=== PATIENT | female | born 1960 | race Caucasian/White ===

== ENCOUNTER 2017-09-28 23:11 | Inpatient (IN) | payer OTHER ==
[~2017-09-28] VITALS: Ht 162.6 cm; Wt 57.5 kg
[~2017-09-28 23:11] MED LIST: ABILIFY PO; ACET325; ALBU3IS INH; ALBU90OI61 INH; AMIT50; AMIT50 PO; AMIT75 PO; AMOCLA875 PO; ARIP10 PO; BACITO TP; CALCNI; CEPH500 PO; CIPR500 PO; CLON1 PO; CYAN1000I IM; CYCL10 PO; DIVA250ER PO; ESTR2 PO; Estrace PO; FLUC150A PO; FLUSAL1005 IH; FLUSAL2505 IH; FOLI1 PO; GABA300 PO; GEMF600 PO; HYDACE10B PO; HYDACE5; HYDACE5 PO; HYDCHL12.5 PO; HYDGUAL120 PO; HYDPAM25; HYDR1TAB94 PO; HYOS.125 SL; IBUP800 PO; IPRAOI INH; K-Dur10 MEQ PO; LEVFLO500 PO; LEVSOD100 PO; LEVSOD200 PO; LOVA40 PO; METH; METH10; OMEPRAZOLE MAGN20 MG PO; OTC COUGH MED; PRED10 PO; PRED20 PO; PREG200 PO; QUET200; QUET300; QUET300 PO; ROPI1; ROPI2 PO; ROSU10TA; ROSU10TA PO; RXHYDACE PO; SPIRIVA INH; SULTRIDS PO; Seroquel100 MG PO; THYR60; TIOT18 IH; TRAZ100; TRAZ100 PO; TRAZODONE; Zofran Odt8 MG SL; [UNRECOGNIZED DRUG - OTHER]
[2017-09-28 23:25] LABS: PCO2 Arterial 29.8 mmHg (35-45); PO2 Arterial 217 mmHg (80-100); pH Blood Arterial 7.33 (7.35-7.45)
[2017-09-28 23:40] LABS: BASOPHILS ABSOLUTE AUTO 0.06 K/mm3 (0.00-0.23); BASOPHILS PERCENT AUTO 0 % (0-2); EOSINOPHILS PERCENT AUTO 1 % (0-6); Hematocrit 33.6 % (33.0-51.0); Hemoglobin 11.5 g/dL (11.5-16.0); IMMATURE GRAN ABSOLUTE AUTO 0.22 K/mm3 (0.00-0.10); IMMATURE GRAN PERCENT AUTO 1 % (0-1); LYMPHOCYTES ABSOLUTE AUTO 2.29 K/mm3 (0.84-5.20); LYMPHOCYTES PERCENT AUTO 13 % (21-46); MONOCYTES ABSOLUTE AUTO 1.11 K/mm3 (0.16-1.47); MONOCYTES PERCENT AUTO 6 % (4-13); Mean Corpuscular HGB 29.3 pg (26.0-34.0); Mean Corpuscular HGB Conc 34.2 g/dL (31.5-36.5); Mean Corpuscular Volume 86 fL (80-100); Mean Platelet Volume 9.2 fL (9.1-12.4); NEUTROPHILS ABSOLUTE AUTO 13.57 K/mm3 (1.96-9.15); NEUTROPHILS PERCENT AUTO 78 % (41-73); Platelet Count 366 K/mm3 (150-400); RDW Coefficient Variation 13.9 % (11.7-14.2); RDW Standard Deviation 43.2 fL (35.1-46.3); Red Blood Cell Count 3.93 M/mm3 (3.80-5.20); White Blood Cell Count 17.35 K/mm3 (4.00-11.30)
[2017-09-28 23:51] LABS: International Normalized Ratio 1.34; Prothrombin Time Results 14.1 Sec (9.7-11.5)
[2017-09-29 00:04] LABS: Alanine Aminotransfer (ALT/SGP 26 U/L (12-78); Albumin, Blood 3.5 g/dL (3.4-5.0); Albumin/Globulin Ratio 0.9 (0.8-1.8); Alk Phos 153 U/L (50-136); Anion Gap 13 mmol/L (6-16); Aspartate Aminotrans (AST/SGOT 35 U/L (12-37); Bilirubin, Total 0.5 mg/dL (0.1-1.0); Blood Urea Nitrogen 15 mg/dL (8-24); CO2, Blood 16 mmol/L (21-32); CPK Creatine Kinase 735 U/L (26-193); Calcium, Blood 8.5 mg/dL (8.5-10.1); Chloride, Blood 100 mmol/L (98-108); Creatinine, Blood 1.15 mg/dL (0.40-1.00); Ethanol (Alcohol), Blood, Med <3 mg/dL; Glomerular Filtration Rate 52 (60-); Glucose, Blood 128 mg/dL (70-99); Magnesium, Blood 1.5 mg/dL (1.6-2.4); Salicylate <1.7 mg/dL (2.8-20.0); Sodium, Blood 129 mmol/L (136-145); Total Protein, Blood 7.5 g/dL (6.4-8.2); Troponin I <0.015 ng/mL (0.000-0.040)
[2017-09-29 00:07] LABS: Creatine Kinase MB 11.1 ng/mL (0.0-3.6); Creatine Kinase MB Index 1.5 (0.0-4.0)
[2017-09-29 00:11] LABS: Acetaminophen, Random <2.0 ug/mL (10.0-30.0)
[2017-09-29 00:21] LABS: Source, Urine Catheter
[2017-09-29 00:28] LABS: Appearance, Urine Clear (Clear); Bilirubin, Urine Neg (Neg); Blood, Urine Neg (Neg); Color, Urine Yellow (P-Yellow); Glucose Qualitative, Urine Neg (Neg); Ketones, Urine Neg (Neg); Leukocyte Esterase, Urine Neg (Neg); Nitrite, Urine Neg (Neg); Protein, Urine Neg (Neg); Urobilinogen, Urine NORM (Normal)
[2017-09-29 00:37] LABS: U Amphetamine Screen Not Detected; U Barbituate Screen Not Detected; U Benzodiazapine Screen Not Detected; U Buprenorphine Screen Not Detected; U Cannabinoids Screen Not Detected; U Cocaine Screen Not Detected; U Methadone Screen Not Detected; U Methamphetamine Screen Not Detected; U Opiates Screen DETECTED; U Oxycodone Screen Not Detected; U Phencyclidine Screen Not Detected; U Propoxyphene Screen Not Detected
[2017-09-29 08:30] LABS: BASOPHILS ABSOLUTE AUTO 0.04 K/mm3 (0.00-0.23); BASOPHILS PERCENT AUTO 0 % (0-2); EOSINOPHILS ABSOLUTE AUTO 0.17 K/mm3 (0.00-0.68); EOSINOPHILS PERCENT AUTO 2 % (0-6); Hematocrit 30.3 % (33.0-51.0); Hemoglobin 10.1 g/dL (11.5-16.0); IMMATURE GRAN ABSOLUTE AUTO 0.06 K/mm3 (0.00-0.10); IMMATURE GRAN PERCENT AUTO 1 % (0-1); LYMPHOCYTES ABSOLUTE AUTO 2.88 K/mm3 (0.84-5.20); LYMPHOCYTES PERCENT AUTO 27 % (21-46); MONOCYTES ABSOLUTE AUTO 0.91 K/mm3 (0.16-1.47); MONOCYTES PERCENT AUTO 9 % (4-13); Mean Corpuscular HGB 29.6 pg (26.0-34.0); Mean Corpuscular HGB Conc 33.3 g/dL (31.5-36.5); NEUTROPHILS ABSOLUTE AUTO 6.68 K/mm3 (1.96-9.15); NEUTROPHILS PERCENT AUTO 62 % (41-73); Platelet Count 328 K/mm3 (150-400); RDW Coefficient Variation 14.3 % (11.7-14.2); RDW Standard Deviation 46.5 fL (35.1-46.3); Red Blood Cell Count 3.41 M/mm3 (3.80-5.20); White Blood Cell Count 10.74 K/mm3 (4.00-11.30)
[2017-09-29 08:33] LABS: Mean Corpuscular Volume 89 fL (80-100)
[2017-09-29 09:46] LABS: Anion Gap 8 mmol/L (6-16); Blood Urea Nitrogen 10 mg/dL (8-24); Bun/Creatinine Ratio 10.8 (12.0-20.0); CO2, Blood 18 mmol/L (21-32); Calcium, Blood 7.5 mg/dL (8.5-10.1); Chloride, Blood 114 mmol/L (98-108); Creatinine, Blood 0.93 mg/dL (0.40-1.00); Glomerular Filtration Rate >60 (60-); Glucose, Blood 111 mg/dL (70-99); Potassium, Blood 4.1 mmol/L (3.5-5.5); Sodium, Blood 140 mmol/L (136-145)
[2017-09-30] MEDS ORDERED: HYDR1TAB94 PO (10:55)
[2017-09-30] MEDS ORDERED: AMIT50 PO (11:25)
[2017-10-01 04:03] LABS: BASOPHILS ABSOLUTE AUTO 0.05 K/mm3 (0.00-0.23); BASOPHILS PERCENT AUTO 0 % (0-2); EOSINOPHILS ABSOLUTE AUTO 0.22 K/mm3 (0.00-0.68); EOSINOPHILS PERCENT AUTO 2 % (0-6); Hematocrit 31.6 % (33.0-51.0); Hemoglobin 10.5 g/dL (11.5-16.0); IMMATURE GRAN ABSOLUTE AUTO 0.09 K/mm3 (0.00-0.10); IMMATURE GRAN PERCENT AUTO 1 % (0-1); LYMPHOCYTES ABSOLUTE AUTO 2.45 K/mm3 (0.84-5.20); LYMPHOCYTES PERCENT AUTO 20 % (21-46); MONOCYTES PERCENT AUTO 7 % (4-13); Mean Corpuscular HGB 28.7 pg (26.0-34.0); Mean Corpuscular HGB Conc 33.2 g/dL (31.5-36.5); Mean Corpuscular Volume 86 fL (80-100); Mean Platelet Volume 9.2 fL (9.1-12.4); NEUTROPHILS ABSOLUTE AUTO 8.49 K/mm3 (1.96-9.15); NEUTROPHILS PERCENT AUTO 70 % (41-73); Platelet Count 417 K/mm3 (150-400); RDW Coefficient Variation 14.4 % (11.7-14.2); Red Blood Cell Count 3.66 M/mm3 (3.80-5.20)
[2017-10-01 04:21] LABS: Anion Gap 8 mmol/L (6-16); Blood Urea Nitrogen 3 mg/dL (8-24); Bun/Creatinine Ratio 3.6 (12.0-20.0); CO2, Blood 22 mmol/L (21-32); Calcium, Blood 8.4 mg/dL (8.5-10.1); Chloride, Blood 108 mmol/L (98-108); Creatinine, Blood 0.83 mg/dL (0.40-1.00); Glomerular Filtration Rate >60 (60-); Glucose, Blood 105 mg/dL (70-99); Phosphorus, Blood 3.3 mg/dL (2.5-4.9); Potassium, Blood 2.9 mmol/L (3.5-5.5); Sodium, Blood 138 mmol/L (136-145)
[2017-10-01 12:04] LABS: Source, Urine Clean Catch
[2017-10-01 12:08] LABS: Bilirubin, Urine Neg (Neg); Blood, Urine 2+ (Neg); Glucose Qualitative, Urine Neg (Neg); Ketones, Urine Neg (Neg); Leukocyte Esterase, Urine Neg (Neg); Nitrite, Urine Neg (Neg); Protein, Urine Neg (Neg); Specific Gravity, Urine 1.005 (1.003-1.022); Urobilinogen, Urine NORM (Normal); pH, Urine 6.5 (5.0-8.0)
[2017-10-01 13:13] LABS: Appearance, Urine Clear (Clear); Color, Urine Pale Yellow (P-Yellow)
[2017-10-01 13:14] LABS: Bacteria Not Seen /hpf; Red Blood Cells, Urine Not Seen /hpf (0-2); Squamous Epithelial Cells Not Seen /hpf (Few); White Blood Cells, Urine Not Seen /hpf (0-5)
[2017-10-02 04:36] LABS: BASOPHILS ABSOLUTE AUTO 0.04 K/mm3 (0.00-0.23); BASOPHILS PERCENT AUTO 0 % (0-2); EOSINOPHILS ABSOLUTE AUTO 0.56 K/mm3 (0.00-0.68); EOSINOPHILS PERCENT AUTO 6 % (0-6); Hematocrit 30.5 % (33.0-51.0); IMMATURE GRAN ABSOLUTE AUTO 0.06 K/mm3 (0.00-0.10); IMMATURE GRAN PERCENT AUTO 1 % (0-1); LYMPHOCYTES ABSOLUTE AUTO 3.56 K/mm3 (0.84-5.20); LYMPHOCYTES PERCENT AUTO 36 % (21-46); MONOCYTES ABSOLUTE AUTO 0.66 K/mm3 (0.16-1.47); MONOCYTES PERCENT AUTO 7 % (4-13); Mean Corpuscular HGB Conc 32.8 g/dL (31.5-36.5); Mean Corpuscular Volume 88 fL (80-100); Mean Platelet Volume 8.8 fL (9.1-12.4); NEUTROPHILS ABSOLUTE AUTO 4.92 K/mm3 (1.96-9.15); NEUTROPHILS PERCENT AUTO 50 % (41-73); Platelet Count 408 K/mm3 (150-400); RDW Coefficient Variation 14.5 % (11.7-14.2); RDW Standard Deviation 46.5 fL (35.1-46.3); Red Blood Cell Count 3.45 M/mm3 (3.80-5.20)
[2017-10-02 04:53] LABS: Albumin, Blood 2.8 g/dL (3.4-5.0); Anion Gap 10 mmol/L (6-16); Blood Urea Nitrogen 4 mg/dL (8-24); Bun/Creatinine Ratio 4.5 (12.0-20.0); CO2, Blood 22 mmol/L (21-32); Calcium, Blood 8.3 mg/dL (8.5-10.1); Chloride, Blood 108 mmol/L (98-108); Creatinine, Blood 0.88 mg/dL (0.40-1.00); Glomerular Filtration Rate >60 (60-); Glucose, Blood 134 mg/dL (70-99); Phosphorus, Blood 2.6 mg/dL (2.5-4.9); Potassium, Blood 2.9 mmol/L (3.5-5.5); Sodium, Blood 140 mmol/L (136-145)
[2017-10-02 12:30] LABS: Magnesium, Blood 1.7 mg/dL (1.6-2.4)
[2017-10-02] MEDS ORDERED: CIPR500 PO (15:12)
[2017-10-02] MEDS ORDERED: LIDO700A20 TOP (15:14)
[2017-10-02] MEDS ORDERED: Flagyl500 MG PO (15:19)
[2017-10-02] MEDS ORDERED: SACC250C PO (15:20)
[2017-10-02] MEDS ORDERED: SIME80CH PO (15:21)
== END 2017-10-02 16:18 | disposition home or self-care (01) | DRG 917 ==
LOC: ER 23:11 → ICUE 09-29 01:17 → PCU 09-29 01:17 → ICUW 09-29 01:17 → ICUE 09-29 01:50 → PCU 09-29 16:56
PROVIDERS: Emergency Medicine; Family Medicine; Internal Medicine
PROC: 5A1935Z Respiratory Ventilation, Less than 24 Consecutive Hours (ICD-10-PCS; principal; 2017-09-29)
DX: T40.601A Poisoning by unspecified narcotics, accidental (unintentional), initial encounter (principal); G92 Toxic encephalopathy; J96.00 Acute respiratory failure, unspecified whether with hypoxia or hypercapnia; E87.1 Hypo-osmolality and hyponatremia; M62.82 Rhabdomyolysis; M54.5 Low back pain; D72.829 Elevated white blood cell count, unspecified; E87.6 Hypokalemia; K52.9 Noninfective gastroenteritis and colitis, unspecified; E86.0 Dehydration; F20.9 Schizophrenia, unspecified; E03.9 Hypothyroidism, unspecified; J44.9 Chronic obstructive pulmonary disease, unspecified; R40.2431 Glasgow coma scale score 3-8, in the field [EMT or ambulance]
CPT/HCPCS: 31720; 36415; 36600; 51702; 70450; 71045; 72125; 72131; 74022; 74177; 80048; 80053; 80069; 81001; 81003; 82140; 82550; 82553; 82803; 83605; 83690; 83735; 83880; 84443; 84484; 85025; 85610; 86850; 86900; 86901; 87040; 93005; 93010; 94002; 94003; 96365; 96375; 97161; 97165; 99291; 99292; C9113; G0480; G8978; G8979; G8980; G8987; G8988; G8989; J0696; J1650; J2405; J2543; J3010; J3370; J3475; J3480; J7030; Q9967

== ENCOUNTER → 2017-10-22 | Outpatient (CLI) | payer OTHER ==
[~2017-10-22] MED LIST changes: +Flagyl500 MG PO; +LIDO700A20 TOP; +SACC250C PO; +SIME80CH PO
== END ==
LOC: LAB 08:00 → LAB SHORT 08:00
DX: K21.9 Gastro-esophageal reflux disease without esophagitis (principal)
CPT/HCPCS: 87338

== ENCOUNTER 2017-12-11 11:48 | Day surgery (SDC) | payer OTHER ==
[~2017-12-11] VITALS: Ht 165.1 cm; Wt 53.7 kg
[~2017-12-11 11:48] MED LIST changes: +ALBU2.5V5 NEB; +ALBU90OI61; +CALCIUM + D3 E1 EACH PO; +LIDOPATCH1 EACH; +LISI5 PO; +Lovastatin20 MG PO; +MIRT15 PO; +Omeprazole20 M1 PO; +PROBIOTIC250 MG PO; +VICODIN ES 7.51 EACH
== END 2017-12-11 16:34 | disposition home or self-care (01) ==
LOC: ORSCSDS 11:48
PROVIDERS: Internal Medicine Gastroenterology
PROC: 0DB98ZX Excision of Duodenum, Via Natural or Artificial Opening Endoscopic, Diagnostic (ICD-10-PCS; principal; 2017-12-11 13:30)
PROC: 0DB68ZX Excision of Stomach, Via Natural or Artificial Opening Endoscopic, Diagnostic (ICD-10-PCS; principal; 2017-12-11 13:30)
PROC: 0DBE8ZX Excision of Large Intestine, Via Natural or Artificial Opening Endoscopic, Diagnostic (ICD-10-PCS; principal; 2017-12-11 13:30)
DX: R19.7 Diarrhea, unspecified (principal); K52.9 Noninfective gastroenteritis and colitis, unspecified; K21.9 Gastro-esophageal reflux disease without esophagitis; D12.5 Benign neoplasm of sigmoid colon; R11.2 Nausea with vomiting, unspecified; R10.9 Unspecified abdominal pain; K29.80 Duodenitis without bleeding; F17.210 Nicotine dependence, cigarettes, uncomplicated; J43.9 Emphysema, unspecified
CPT/HCPCS: J2250; J7120

== ENCOUNTER → 2018-01-20 | Outpatient (CLI) | payer OTHER ==
[2018-01-23 13:06] LABS: Adenovirus F 40/41 Not Detected (NOT DETECT); Astrovirus Not Detected (NOT DETECT); Campylobacter Sp Not Detected (NOT DETECT); Cryptosporidium Not Detected (NOT DETECT); Cyclospora Cayetanensis Not Detected (NOT DETECT); E. Coli O157 Not Detected (NOT DETECT); Entamoeba Histolytica Not Detected (NOT DETECT); Enteroaggregative E. coli-EAEC Not Detected (NOT DETECT); Enteropathogenic E. coli-EPEC Not Detected (NOT DETECT); Enterotoxigenic E. coli-ETEC Not Detected (NOT DETECT); Giardia Lamblia Not Detected (NOT DETECT); Norovirus GI/GII Not Detected (NOT DETECT); Plesiomonas Shigelloides Not Detected (NOT DETECT); Rotavirus A Not Detected (NOT DETECT); Salmonella Sp Not Detected (NOT DETECT); Sapovirus Not Detected (NOT DETECT); Shiga Toxin-prod E. coli-STEC Not Detected (NOT DETECT); Shigella/Enteroin E. coli-EIEC Not Detected (NOT DETECT); Vibrio Cholerae Not Detected (NOT DETECT); Vibrio Sp Not Detected (NOT DETECT); Yersinia Enterocolitica Not Detected (NOT DETECT)
== END | disposition home or self-care (01) ==
LOC: LAB 16:00 → LAB SHORT 16:00 → LAB FUT 01-03 17:25 → EDSTATUS 01-03 17:25
PROVIDERS: Internal Medicine Gastroenterology
DX: R19.7 Diarrhea, unspecified (principal)
CPT/HCPCS: 87507

== ENCOUNTER → 2018-12-06 | Outpatient (CLI) | payer OTHER ==
[~2018-12-06] MED LIST changes: +ADAL40PEN; +BUDE.25; +ONDA4ODT; +PRAM.125
== END | disposition home or self-care (01) ==
LOC: LAB SHORT 13:53 → LAB EV 13:53
DX: B37.0 Candidal stomatitis (principal)
CPT/HCPCS: 87081

== ENCOUNTER 2019-02-05 10:25 | Day surgery (SDC) | payer OTHER ==
[~2019-02-05] VITALS: Ht 162.6 cm; Wt 48.2 kg
[~2019-02-05 10:25] MED LIST changes: -ADAL40PEN; -BUDE.25; -ONDA4ODT; -PRAM.125
[2019-02-05] MEDS ORDERED: ADAL40PEN (11:21)
[2019-02-05] MEDS ORDERED: PRAM.125 (11:22)
[2019-02-05] MEDS ORDERED: BUDE.25 (11:22)
[2019-02-05] MEDS ORDERED: ONDA4ODT (11:23)
--- NOTE | 2019-02-05 11:28 | NUR ---
02/05/19 1128 Neelima Cottrell 1 IV MISS IN RR BY MA VALVE 1 MISSED IV IN RAC BY FELI RAMIRES BLEW 1 MISSED IV IN LH BY RN VALVE 1 MISSED IV IN LAC BY RN VALVE 1 GOOD IV IN LW BY RN PT TOW
--- NOTE | 2019-02-05 13:22 | NUR ---
02/05/19 1322 Erin Bernal LATE ENTRY---DR CORTES IS AWARE AND AGREES WITH LARGER BOLUS OF PROPOFOL IN ORDER TO KEEP PATIENT STILL. PATIENT TOLERATED THIS FINE AND THERE WERE NO PROBLEMS
== END 2019-02-05 13:19 | disposition home or self-care (01) ==
LOC: ORSCSDS 10:25
DX: R10.9 Unspecified abdominal pain (principal); K63.89 Other specified diseases of intestine; D12.3 Benign neoplasm of transverse colon; K62.1 Rectal polyp; Z86.010 Personal history of colon polyps; Z87.19 Personal history of other diseases of the digestive system; R19.4 Change in bowel habit; J44.9 Chronic obstructive pulmonary disease, unspecified; K21.9 Gastro-esophageal reflux disease without esophagitis; E78.5 Hyperlipidemia, unspecified; F31.9 Bipolar disorder, unspecified; E03.9 Hypothyroidism, unspecified; M79.7 Fibromyalgia; E11.9 Type 2 diabetes mellitus without complications; F17.210 Nicotine dependence, cigarettes, uncomplicated; Z79.899 Other long term (current) drug therapy
CPT/HCPCS: 82947; 88305; J2250; J2704; J7120

== ENCOUNTER → 2019-03-13 | Outpatient (CLI) | payer OTHER ==
[~2019-03-13] MED LIST changes: +ADAL40PEN; +BUDE.25; +ONDA4ODT; +PRAM.125
[2019-03-13 14:57] LABS: BASOPHILS ABSOLUTE AUTO 0.08 K/mm3 (0.00-0.23); BASOPHILS PERCENT AUTO 1 % (0-2); EOSINOPHILS PERCENT AUTO 9 % (0-6); Hematocrit 37.7 % (33.0-51.0); Hemoglobin 12.1 g/dL (11.5-16.0); IMMATURE GRAN ABSOLUTE AUTO 0.03 K/mm3 (0.00-0.10); IMMATURE GRAN PERCENT AUTO 0 % (0-1); LYMPHOCYTES ABSOLUTE AUTO 4.09 K/mm3 (0.84-5.20); LYMPHOCYTES PERCENT AUTO 36 % (21-46); MONOCYTES ABSOLUTE AUTO 0.47 K/mm3 (0.16-1.47); MONOCYTES PERCENT AUTO 4 % (4-13); Mean Corpuscular HGB 29.4 pg (26.0-34.0); Mean Corpuscular HGB Conc 32.1 g/dL (31.5-36.5); Mean Corpuscular Volume 92 fL (80-100); Mean Platelet Volume 9.1 fL (9.1-12.4); NEUTROPHILS ABSOLUTE AUTO 5.83 K/mm3 (1.96-9.15); NEUTROPHILS PERCENT AUTO 51 % (41-73); Platelet Count 369 K/mm3 (150-400); RDW Coefficient Variation 14.1 % (11.7-14.2); RDW Standard Deviation 47.6 fL (35.1-46.3); Red Blood Cell Count 4.11 M/mm3 (3.80-5.20)
[2019-03-13 15:15] LABS: Bun/Creatinine Ratio 13.2 (12.0-20.0); Calcium, Blood 8.9 mg/dL (8.5-10.1); Creatinine, Blood 1.06 mg/dL (0.40-1.00); Potassium, Blood 3.3 mmol/L (3.5-5.5); Thyroid Stimulating Hormone 2.354 uIU/mL (0.360-4.800)
== END | disposition home or self-care (01) ==
LOC: LAB SHORT 14:51 → LAB EV 14:51
PROVIDERS: Physician Assistant Surgical
DX: R53.83 Other fatigue (principal)
CPT/HCPCS: 80048; 84443; 85025

== ENCOUNTER → 2019-03-20 | Outpatient (CLI) | payer OTHER ==
[2019-03-20 13:08] LABS: BASOPHILS ABSOLUTE AUTO 0.11 K/mm3 (0.00-0.23); BASOPHILS PERCENT AUTO 1 % (0-2); EOSINOPHILS ABSOLUTE AUTO 0.83 K/mm3 (0.00-0.68); EOSINOPHILS PERCENT AUTO 6 % (0-6); Hematocrit 42.5 % (33.0-51.0); Hemoglobin 14.3 g/dL (11.5-16.0); IMMATURE GRAN ABSOLUTE AUTO 0.06 K/mm3 (0.00-0.10); IMMATURE GRAN PERCENT AUTO 0 % (0-1); LYMPHOCYTES ABSOLUTE AUTO 3.71 K/mm3 (0.84-5.20); LYMPHOCYTES PERCENT AUTO 25 % (21-46); MONOCYTES ABSOLUTE AUTO 0.66 K/mm3 (0.16-1.47); MONOCYTES PERCENT AUTO 4 % (4-13); Mean Corpuscular HGB 29.5 pg (26.0-34.0); Mean Corpuscular HGB Conc 33.6 g/dL (31.5-36.5); Mean Platelet Volume 8.5 fL (9.1-12.4); NEUTROPHILS ABSOLUTE AUTO 9.67 K/mm3 (1.96-9.15); NEUTROPHILS PERCENT AUTO 64 % (41-73); Platelet Count 589 K/mm3 (150-400); RDW Coefficient Variation 14.2 % (11.7-14.2); RDW Standard Deviation 45.2 fL (35.1-46.3); Red Blood Cell Count 4.84 M/mm3 (3.80-5.20); White Blood Cell Count 15.04 K/mm3 (4.00-11.30)
[2019-03-20 13:12] LABS: Mean Corpuscular Volume 88 fL (80-100)
[2019-03-20 14:13] LABS: Alanine Aminotransfer (ALT/SGP 19 U/L (12-78); Albumin, Blood 3.9 g/dL (3.4-5.0); Alk Phos 180 U/L (40-126); Anion Gap 15 mmol/L (6-16); Aspartate Aminotrans (AST/SGOT 20 U/L (12-37); Bilirubin, Total 0.2 mg/dL (0.1-1.0); Blood Urea Nitrogen 6 mg/dL (8-24); Bun/Creatinine Ratio 7.1 (12.0-20.0); CO2, Blood 19 mmol/L (21-32); Calcium, Blood 9.8 mg/dL (8.5-10.1); Chloride, Blood 103 mmol/L (98-108); Creatinine, Blood 0.84 mg/dL (0.40-1.00); Glomerular Filtration Rate >60 (60-); Glucose, Blood 104 mg/dL (70-99); Potassium, Blood 3.9 mmol/L (3.5-5.5); Sodium, Blood 137 mmol/L (136-145); Total Protein, Blood 7.9 g/dL (6.4-8.2)
== END | disposition home or self-care (01) ==
LOC: LAB SHORT 13:00 → LAB EV 13:00
PROVIDERS: Physician Assistant
DX: B37.0 Candidal stomatitis (principal)
CPT/HCPCS: 80053; 85025

== ENCOUNTER 2019-07-09 00:52 | Inpatient (IN) | payer OTHER ==
[~2019-07-09] VITALS: Ht 162.6 cm; Wt 47.5 kg
[~2019-07-09 00:52] MED LIST changes: -ALBU2.5V5 NEB; -ALBU90OI61; -BUDE.25; +Duoneb 2.5-0.5 M3 ML NEB; -ONDA4ODT; +ONDA4ODT SL; -PRAM.125; +PRAM.125 PO
[2019-07-09 01:28] LABS: BASOPHILS ABSOLUTE AUTO 0.09 K/mm3 (0.00-0.23); BASOPHILS PERCENT AUTO 0 % (0-2); Hematocrit 34.5 % (33.0-51.0); Hemoglobin 11.1 g/dL (11.5-16.0); LYMPHOCYTES ABSOLUTE AUTO 1.58 K/mm3 (0.84-5.20); LYMPHOCYTES PERCENT AUTO 7 % (21-46); MONOCYTES ABSOLUTE AUTO 0.45 K/mm3 (0.16-1.47); MONOCYTES PERCENT AUTO 2 % (4-13); Mean Corpuscular HGB 29.7 pg (26.0-34.0); Mean Corpuscular HGB Conc 32.2 g/dL (31.5-36.5); Mean Corpuscular Volume 92 fL (80-100); Mean Platelet Volume 8.2 fL (9.1-12.4); Platelet Count 386 K/mm3 (150-400); RDW Coefficient Variation 14.6 % (11.7-14.2); RDW Standard Deviation 49.1 fL (35.1-46.3); Red Blood Cell Count 3.74 M/mm3 (3.80-5.20); White Blood Cell Count 21.85 K/mm3 (4.00-11.30)
[2019-07-09 01:30] LABS: EOSINOPHILS ABSOLUTE AUTO 0.17 K/mm3 (0.00-0.68); EOSINOPHILS PERCENT AUTO 1 % (0-6); IMMATURE GRAN ABSOLUTE AUTO 0.12 K/mm3 (0.00-0.10); IMMATURE GRAN PERCENT AUTO 1 % (0-1); NEUTROPHILS ABSOLUTE AUTO 19.44 K/mm3 (1.96-9.15); NEUTROPHILS PERCENT AUTO 89 % (41-73)
[2019-07-09 02:25] LABS: Alanine Aminotransfer (ALT/SGP 65 U/L (12-78); Albumin, Blood 2.9 g/dL (3.4-5.0); Albumin/Globulin Ratio 0.7 (0.8-1.8); Alk Phos 209 U/L (50-136); Anion Gap 13 mmol/L (6-16); Aspartate Aminotrans (AST/SGOT 20 U/L (12-37); Bilirubin, Total 0.5 mg/dL (0.1-1.0); Blood Urea Nitrogen 39 mg/dL (8-24); Bun/Creatinine Ratio 20.7 (12.0-20.0); CO2, Blood 20 mmol/L (21-32); Calcium, Blood 8.4 mg/dL (8.5-10.1); Chloride, Blood 93 mmol/L (98-108); Creatinine, Blood 1.88 mg/dL (0.40-1.00); Globulin, Blood 4.3 g/dL (2.2-4.0); Glomerular Filtration Rate 29 (60-); Glucose, Blood 128 mg/dL (70-99); Sodium, Blood 126 mmol/L (136-145); Total Protein, Blood 7.2 g/dL (6.4-8.2); Troponin I <0.015 ng/mL (0.000-0.040)
[2019-07-09 03:56] LABS: Source, Urine Clean Catch
[2019-07-09 03:59] LABS: Appearance, Urine Clear (Clear); Bilirubin, Urine Neg (Neg); Blood, Urine Neg (Neg); Color, Urine Yellow (P-Yellow); Glucose Qualitative, Urine Neg (Neg); Ketones, Urine Neg (Neg); Leukocyte Esterase, Urine Neg (Neg); Nitrite, Urine Neg (Neg); Protein, Urine Neg (Neg); Specific Gravity, Urine 1.015 (1.003-1.022); Urobilinogen, Urine NORM (Normal)
[2019-07-09 06:35] LABS: Adenovirus Not Detected (NOT DETECT); Bordetella pertussis Not Detected (NOT DETECT); Chlamydophila pneumoniae Not Detected (NOT DETECT); Coronavirus 229E Not Detected (NOT DETECT); Coronavirus HKU1 Not Detected (NOT DETECT); Coronavirus NL63 Not Detected (NOT DETECT); Coronavirus OC43 Not Detected (NOT DETECT); Human Metapneumovirus Not Detected (NOT DETECT); Human Rhinovirus/Enterovirus Not Detected (NOT DETECT); Influenza A/2009-H1 Not Detected (NOT DETECT); Influenza A/H1 Not Detected (NOT DETECT); Influenza A/H3 Not Detected (NOT DETECT); Influenza B Not Detected (NOT DETECT); Mycoplasma pneumoniae Not Detected (NOT DETECT); Parainfluenza Virus 1 Not Detected (NOT DETECT); Parainfluenza Virus 2 Not Detected (NOT DETECT); Parainfluenza Virus 3 Not Detected (NOT DETECT); Parainfluenza Virus 4 Not Detected (NOT DETECT); Respiratory Syncytial Virus Not Detected (NOT DETECT)
[2019-07-09] MEDS ORDERED: Hydrocodone-Ap1 EA20 PO (09:01)
[2019-07-09] MEDS ORDERED: BUDESONIDE1 MG/2 ML NEB (21:36)
[2019-07-09] MEDS ORDERED: STELARA90 MG/1 ML SC (21:38)
[2019-07-10 04:52] LABS: BASOPHILS ABSOLUTE AUTO 0.08 K/mm3 (0.00-0.23); BASOPHILS PERCENT AUTO 0 % (0-2); Hemoglobin 8.8 g/dL (11.5-16.0); LYMPHOCYTES ABSOLUTE AUTO 0.87 K/mm3 (0.84-5.20); LYMPHOCYTES PERCENT AUTO 5 % (21-46); MONOCYTES ABSOLUTE AUTO 0.89 K/mm3 (0.16-1.47); MONOCYTES PERCENT AUTO 5 % (4-13); Mean Corpuscular HGB 29.7 pg (26.0-34.0); Mean Corpuscular HGB Conc 32.6 g/dL (31.5-36.5); Mean Corpuscular Volume 91 fL (80-100); Mean Platelet Volume 8.6 fL (9.1-12.4); Platelet Count 378 K/mm3 (150-400); RDW Coefficient Variation 14.4 % (11.7-14.2); RDW Standard Deviation 48.1 fL (35.1-46.3); Red Blood Cell Count 2.96 M/mm3 (3.80-5.20); White Blood Cell Count 18.54 K/mm3 (4.00-11.30)
--- NOTE | 2019-07-10 04:52 | NUR ---
SHIFT SUMMARY PT IS A/O X4. PT HAS BEEN BEDREST D/T DECR. SENSATION FROM EPIDURAL. HOWEVER PT REPOSITIONS SELF WELL AND HAS BEEN ASSISTED WTIH REPOSITIONING PRN. EPIDURAL, NG TUBE, CASTANO IN PLACE. O2 HAS BEEN IN USE TO MAINTAIN SATURATION. PT HAS BEEN VERY ANXIOUS THROUGHOUT THE NIGHT. PROVIDED EDUCATION ABOUT PAIN, PROVIDED REASSURANCE MULT. TIMES. PT'S BROTHER STAYED AT BEDSIDE THROUGH THE NIGHT. ASSISTED WITH ADL'S PRN.
[2019-07-10 04:54] LABS: EOSINOPHILS PERCENT AUTO 0 % (0-6); IMMATURE GRAN ABSOLUTE AUTO 0.18 K/mm3 (0.00-0.10); IMMATURE GRAN PERCENT AUTO 1 % (0-1); NEUTROPHILS ABSOLUTE AUTO 16.52 K/mm3 (1.96-9.15); NEUTROPHILS PERCENT AUTO 89 % (41-73)
[2019-07-10 05:14] LABS: Albumin, Blood 1.9 g/dL (3.4-5.0); Albumin/Globulin Ratio 0.6 (0.8-1.8); Bilirubin, Total 0.5 mg/dL (0.1-1.0); Bun/Creatinine Ratio 24.6 (12.0-20.0); Creatinine, Blood 1.18 mg/dL (0.40-1.00); Globulin, Blood 3.4 g/dL (2.2-4.0); Potassium, Blood 3.9 mmol/L (3.5-5.5); Total Protein, Blood 5.3 g/dL (6.4-8.2)
--- NOTE | 2019-07-10 18:31 | NUR ---
SHIFT SUMMARY PT A&OX4, VSS, NPO, POD1 COLECTOMY W/JUAN, OSTOMY WITH SMALL AMT BROWN LIQUID OUTPUT, PASSING FLATUS; EPIDURAL FOR PAIN @ 14, PT PUSHES BOLUS BUTTON PRN; Q1H UNTIL 2300. ANXIETY TX'D WITH 1 MG ATIVAN GIVEN 2X. CASTANO PATENT & DRAINING YELLOW URINE, STAT LOCK ON, OFF FLOOR. NG TUBE L.I. DRAINING GREEN LIQUID 600 OUT THIS SHIFT. REPOSITIONS WELL. WILL REPORT TO ONCOMING NOC RN.
[2019-07-11 05:01] LABS: BASOPHILS ABSOLUTE AUTO 0.02 K/mm3 (0.00-0.23); BASOPHILS PERCENT AUTO 0 % (0-2); EOSINOPHILS PERCENT AUTO 0 % (0-6); Hematocrit 24.2 % (33.0-51.0); Hemoglobin 8.2 g/dL (11.5-16.0); IMMATURE GRAN ABSOLUTE AUTO 0.31 K/mm3 (0.00-0.10); IMMATURE GRAN PERCENT AUTO 2 % (0-1); LYMPHOCYTES ABSOLUTE AUTO 1.23 K/mm3 (0.84-5.20); LYMPHOCYTES PERCENT AUTO 9 % (21-46); MONOCYTES ABSOLUTE AUTO 1.01 K/mm3 (0.16-1.47); MONOCYTES PERCENT AUTO 8 % (4-13); Mean Corpuscular HGB Conc 33.9 g/dL (31.5-36.5); Mean Corpuscular Volume 89 fL (80-100); Mean Platelet Volume 8.3 fL (9.1-12.4); NEUTROPHILS ABSOLUTE AUTO 10.75 K/mm3 (1.96-9.15); NEUTROPHILS PERCENT AUTO 81 % (41-73); NRBC ABSOLUTE 0.02 K/mm3 (0.00-0.02); NRBC Auto 0.2 /100 WBC (0.0-0.2); Platelet Count 427 K/mm3 (150-400); RDW Coefficient Variation 14.1 % (11.7-14.2); Red Blood Cell Count 2.73 M/mm3 (3.80-5.20); White Blood Cell Count 13.32 K/mm3 (4.00-11.30)
--- NOTE | 2019-07-11 05:07 | NUR ---
SHIFT SUMMARY POD 2 COLECTOMY WITH NEW OSTOMY PT ALERT BUT CONFUSED. PT TALKS TO SELF AND IS DIFFICULT TO UNDERSTAND. REORIENTS WELL AND ANSWERS QUESTIONS APPROPRIATLY. OSTOMY PINK AND MOIST. BROWN LIQUID IN BAG, SMALL AMOUNT OF FLATUS. PICCO DRESSING COMPRESSED GREEN LIGHT BLINKING. EPIDURAL IN PLACE. PT SLEEPING FREQUENTLY REPORTING SOME COMFORT. NG TUBE IN PLACE DRAINING GREEN/BROWN LIQUID. THICK SEDEMENT PRESENT IN TUBE. FLUSHED MULTIPLE TIMES TO GET NG TO DRAIN. CALL LIGHT IN REACH BED ALARM ON DURING SHIFT.
[2019-07-11 05:18] LABS: Anion Gap 12 mmol/L (6-16); Blood Urea Nitrogen 13 mg/dL (8-24); CO2, Blood 21 mmol/L (21-32); Calcium, Blood 8.5 mg/dL (8.5-10.1); Chloride, Blood 107 mmol/L (98-108); Creatinine, Blood 0.76 mg/dL (0.40-1.00); Glomerular Filtration Rate >60 (60-); Glucose, Blood 108 mg/dL (70-99); Magnesium, Blood 1.7 mg/dL (1.6-2.4); Phosphorus, Blood 1.8 mg/dL (2.5-4.9); Potassium, Blood 3.1 mmol/L (3.5-5.5); Sodium, Blood 140 mmol/L (136-145)
--- NOTE | 2019-07-11 17:30 | NUR ---
SHIFT SUMMARY PT A&OX4, OCC CONFUSION W/MUMBLING, VSS, TELE ST 103 BPM. POD2 COLECTOMY WITH OSTOMY, SMALL AMOUNT BROWN LIQUID WITH SMALL AMOUNT OF FLATUS. NG TUBE REMOVED TODAY; RANDAL CL DIET. CASTANO PATENT & DRAINING YELLOW URINE, STAT LOCK ON, OFF FLOOR. PAIN MANAGED WITH EPIDURAL SIEBEL CONSULTANT AT 14; ATIVAN FOR ANXIETY. SBA TO CHAIR OFF/ON T/O SHIFT. WILL REPORT TO ONCOMING NOC RN.
--- NOTE | 2019-07-12 00:36 | NUR ---
EPIDURAL DR. AGARWAL CALLED WITH ORDERS TO STOP EPIDURAL INFUSION. PLAN IS TO REMOVE CATHETER TOMORROW POSSIBLY A FBP NURSE. CONTINUE WITH ORDERED IV PAIN MEDS UNTIL MORNING HOSPITALIST CAN ORDER PO PAIN MEDS. WILL STOP INFUSION AND MONITOR PATIENTS PAIN.
--- NOTE | 2019-07-12 01:22 | NUR ---
EPIDURAL DC'D. FBP NURSE UP TO CAP THE EPIDURAL. PLAN IS TO REMOVE IN THE AM. PT EDUCATED ON PLAN FOR PAIN CONTROL. PT UNDERSTANDS AND WILL CALL WHEN PAIN BEGINS TO CLIMB. EDUCATED PT ON NOT GETTING OUT OF BED WITHOUT ASSISTANCE AND WAITING FOR EPIDURAL TO WEAR OFF AND SENSATION TO COMPLETELY RETURN
--- NOTE | 2019-07-12 04:52 | NUR ---
SHIFT SUMMARY POD 3 COLECTOMY WITH NEW OSTOMY AA0X4, VSS. PT HAVING MODERATE AMOUNT OF FLATUS. PT ABLE TO BURP HER BAG ON HER OWN. EDUCATED PT ON OSTOMY AND GAS OUTPUT, PT ACTIVELY ASKING QUESTIONS AND PARTICIPATING. EPIDURAL REMOVED PER MD ORDER, PT REPORTS PAIN LEVELS AROUND 3/10. PT HAD LARGE AMOUNT OF EMESIS DURING SHIFT, MEDICATED WITH ZOFRAN. PT PREVIOUSLT DENIED NAUSEA DURING SHIFT. CASTANO PATENT AND DRAINING.
[2019-07-12 05:22] LABS: BASOPHILS ABSOLUTE AUTO 0.01 K/mm3 (0.00-0.23); BASOPHILS PERCENT AUTO 0 % (0-2); EOSINOPHILS ABSOLUTE AUTO 0.08 K/mm3 (0.00-0.68); EOSINOPHILS PERCENT AUTO 1 % (0-6); Hematocrit 21.5 % (33.0-51.0); Hemoglobin 7.3 g/dL (11.5-16.0); IMMATURE GRAN ABSOLUTE AUTO 0.46 K/mm3 (0.00-0.10); IMMATURE GRAN PERCENT AUTO 4 % (0-1); LYMPHOCYTES ABSOLUTE AUTO 1.62 K/mm3 (0.84-5.20); LYMPHOCYTES PERCENT AUTO 14 % (21-46); MONOCYTES ABSOLUTE AUTO 0.67 K/mm3 (0.16-1.47); MONOCYTES PERCENT AUTO 6 % (4-13); Mean Corpuscular HGB 29.8 pg (26.0-34.0); Mean Corpuscular Volume 88 fL (80-100); Mean Platelet Volume 8.3 fL (9.1-12.4); NEUTROPHILS ABSOLUTE AUTO 9.08 K/mm3 (1.96-9.15); NEUTROPHILS PERCENT AUTO 76 % (41-73); NRBC ABSOLUTE 0.03 K/mm3 (0.00-0.02); NRBC Auto 0.3 /100 WBC (0.0-0.2); Platelet Count 451 K/mm3 (150-400); RDW Standard Deviation 45.2 fL (35.1-46.3); Red Blood Cell Count 2.45 M/mm3 (3.80-5.20); White Blood Cell Count 11.92 K/mm3 (4.00-11.30)
[2019-07-12 05:36] LABS: Albumin, Blood 1.9 g/dL (3.4-5.0); Anion Gap 7 mmol/L (6-16); Blood Urea Nitrogen 9 mg/dL (8-24); Bun/Creatinine Ratio 12.8 (12.0-20.0); CO2, Blood 27 mmol/L (21-32); Calcium, Blood 8.1 mg/dL (8.5-10.1); Chloride, Blood 104 mmol/L (98-108); Creatinine, Blood 0.71 mg/dL (0.40-1.00); Glomerular Filtration Rate >60 (60-); Glucose, Blood 104 mg/dL (70-99); Magnesium, Blood 1.5 mg/dL (1.6-2.4); Phosphorus, Blood 1.4 mg/dL (2.5-4.9); Potassium, Blood 2.8 mmol/L (3.5-5.5); Sodium, Blood 138 mmol/L (136-145)
--- NOTE | 2019-07-12 06:09 | NUR ---
SPOKE TO DR. FOY ABOUT PT'S HGB OF 7.3. ORDERS TO TRANSFUSE 1 UNIT PRBC GIVEN. PT ASYMPTOMATIC AT THIS TIME CURRENTLT RESTING IN BED
--- NOTE | 2019-07-12 19:57 | NUR ---
SHIFT SUMMARY PT A&OX4, VSS, TELE SR 88. POD3 COLECTOMY WITH ILEOSTOMY, LG AMT DARK LIQUID WITH BROWN FORMED STOOL OUT OF OSTOMY. CONVATEC ORDERED; PT WATCHED SEVERAL OSTOMY VIDEOS; PT EMPTIED BAG 2X AND WATCHED CHANGE OF APPLIANCE TODAY. PAIN MANAGED WITH 15 MG PERC; ANXIETY WITH 1 MG ATIVAN. RA. PLAN FOR EPIDURAL TO BE REMOVED IN AM; HOLD LOVENOX. REPORT GIVEN TO ZARI MILLER.
--- NOTE | 2019-07-13 04:26 | NUR ---
SHIFT SUMMARY POD COLECTOMY WITH ILEOSTOMY AA0X4, VSS. PT PASSING LIQUID/SOME FORMED BROWN STOOL IN BAG. STOMA PINK AND BEEFY. PASSING FLATUS. PT ACTIVELY HELPS WITH CHANGING AND ASKING QUESTIONS ABOUT OSTOMY APPLIANCES. PT SBY ASSIST WALKING TO RESTROOM, VOIDING WELL. DENIES MUCH PAIN. MEDICATED FOR PAIN X1. ATIVAN GIVEN FOR ANXIETY X1. PT TOLERATED WELL. EPIDURAL LINE IN PLACE AWAITING REMOVAL TODAY. PLAN TO CONTINUE OSTOMY EDUCATION WITH PATIENT.
[2019-07-13 06:50] LABS: BASOPHILS ABSOLUTE AUTO 0.03 K/mm3 (0.00-0.23); BASOPHILS PERCENT AUTO 0 % (0-2); EOSINOPHILS ABSOLUTE AUTO 0.16 K/mm3 (0.00-0.68); EOSINOPHILS PERCENT AUTO 1 % (0-6); Hematocrit 24.7 % (33.0-51.0); Hemoglobin 8.2 g/dL (11.5-16.0); IMMATURE GRAN ABSOLUTE AUTO 0.37 K/mm3 (0.00-0.10); IMMATURE GRAN PERCENT AUTO 3 % (0-1); LYMPHOCYTES ABSOLUTE AUTO 1.97 K/mm3 (0.84-5.20); LYMPHOCYTES PERCENT AUTO 15 % (21-46); MONOCYTES ABSOLUTE AUTO 0.61 K/mm3 (0.16-1.47); MONOCYTES PERCENT AUTO 5 % (4-13); Mean Corpuscular HGB 29.9 pg (26.0-34.0); Mean Corpuscular HGB Conc 33.2 g/dL (31.5-36.5); Mean Corpuscular Volume 90 fL (80-100); Mean Platelet Volume 8.3 fL (9.1-12.4); NEUTROPHILS ABSOLUTE AUTO 10.44 K/mm3 (1.96-9.15); NEUTROPHILS PERCENT AUTO 77 % (41-73); Platelet Count 439 K/mm3 (150-400); RDW Coefficient Variation 14.2 % (11.7-14.2); RDW Standard Deviation 46.3 fL (35.1-46.3); Red Blood Cell Count 2.74 M/mm3 (3.80-5.20); White Blood Cell Count 13.58 K/mm3 (4.00-11.30)
[2019-07-13 07:11] LABS: Albumin, Blood 1.7 g/dL (3.4-5.0); Anion Gap 5 mmol/L (6-16); Blood Urea Nitrogen 7 mg/dL (8-24); Bun/Creatinine Ratio 10.4 (12.0-20.0); CO2, Blood 26 mmol/L (21-32); Calcium, Blood 7.7 mg/dL (8.5-10.1); Chloride, Blood 103 mmol/L (98-108); Creatinine, Blood 0.67 mg/dL (0.40-1.00); Glomerular Filtration Rate >60 (60-); Glucose, Blood 85 mg/dL (70-99); Magnesium, Blood 2.4 mg/dL (1.6-2.4); Phosphorus, Blood 1.4 mg/dL (2.5-4.9); Potassium, Blood 3.5 mmol/L (3.5-5.5); Sodium, Blood 134 mmol/L (136-145)
--- NOTE | 2019-07-13 11:11 | NUR ---
EPIDURAL REMOVED FAMILY NURSE, SUNNY, HERE TO REMOVE EPIDURAL. PT SAT ON THE SIDE OF THE BED. TAPE REMOVED. SKIN UNDER TAPE PINK. CATHETER REMOVED. BLUE TIP NOTED. BAND AIDE APPLIED OVER SITE. PT TOLERATED WELL. CONTINUE POT.
[2019-07-14 04:47] LABS: BASOPHILS ABSOLUTE AUTO 0.03 K/mm3 (0.00-0.23); BASOPHILS PERCENT AUTO 0 % (0-2); EOSINOPHILS ABSOLUTE AUTO 0.28 K/mm3 (0.00-0.68); EOSINOPHILS PERCENT AUTO 2 % (0-6); Hematocrit 25.8 % (33.0-51.0); Hemoglobin 8.6 g/dL (11.5-16.0); IMMATURE GRAN ABSOLUTE AUTO 0.59 K/mm3 (0.00-0.10); IMMATURE GRAN PERCENT AUTO 3 % (0-1); LYMPHOCYTES ABSOLUTE AUTO 2.65 K/mm3 (0.84-5.20); LYMPHOCYTES PERCENT AUTO 15 % (21-46); MONOCYTES ABSOLUTE AUTO 0.89 K/mm3 (0.16-1.47); MONOCYTES PERCENT AUTO 5 % (4-13); Mean Corpuscular HGB 29.6 pg (26.0-34.0); Mean Corpuscular HGB Conc 33.3 g/dL (31.5-36.5); Mean Corpuscular Volume 89 fL (80-100); Mean Platelet Volume 8.3 fL (9.1-12.4); NEUTROPHILS ABSOLUTE AUTO 13.58 K/mm3 (1.96-9.15); NEUTROPHILS PERCENT AUTO 75 % (41-73); Platelet Count 475 K/mm3 (150-400); RDW Standard Deviation 45.5 fL (35.1-46.3); Red Blood Cell Count 2.91 M/mm3 (3.80-5.20); White Blood Cell Count 18.02 K/mm3 (4.00-11.30)
[2019-07-14 05:11] LABS: Magnesium, Blood 1.6 mg/dL (1.6-2.4)
[2019-07-14 05:14] LABS: Albumin, Blood 1.9 g/dL (3.4-5.0); Anion Gap 8 mmol/L (6-16); Blood Urea Nitrogen 9 mg/dL (8-24); CO2, Blood 21 mmol/L (21-32); Chloride, Blood 104 mmol/L (98-108); Creatinine, Blood 0.75 mg/dL (0.40-1.00); Glomerular Filtration Rate >60 (60-); Glucose, Blood 77 mg/dL (70-99); Phosphorus, Blood 2.5 mg/dL (2.5-4.9); Potassium, Blood 4.7 mmol/L (3.5-5.5); Sodium, Blood 133 mmol/L (136-145)
--- NOTE | 2019-07-14 06:07 | NUR ---
SHIFT SUMMARY HAS RESTED WELL, GOOD INTAKE AND OUTPUT NOTED. PAIN MANAGED WITH PO PERCOCET X3 DOSES THIS SHIFT. C/O ANXIETY, MEDICATED PER EMAR. CORE RING OF OSTOMY PRODUCT INTACT, OUTSIDE FLAP LOOSE, EDGES REINFORCED WITH MASTISOL AND SILK TAPE, TOLERATED WELL. REITERATED INSTRUCTIONS WITH CARE IN BURPING AND EMPTYING OSTOMY PRODUCT, VOICES UNDERSTANDING. DEMONSTRATES ABILITY TO HANDLE PRODUCT WITH MINIMAL PROMPTING AND ASSISTANCE. DENIES FURTHER NEEDS OR WANTS AT THIS TIME. SAFETY MEASURES IN PLACE. WILL GIVE HAND OFF TO ONCOMING SHIFT USING SBAR DURING BEDSIDE REPORT.
--- NOTE | 2019-07-14 14:58 | NUR ---
DR BONDS HERE TO SEE PT. SEE ORDERS.
--- NOTE | 2019-07-14 16:26 | NUR ---
THERAPY HERE TO SEE PT, FAMILY HERE.
--- NOTE | 2019-07-14 16:57 | NUR ---
SHIFT SUMMARY PT EATING AND DRINKING, VOIDING. PT OSTOMY APPLIANCE CHANGED TODAY IT CAME OFF. PT WAS EDUCATED AND WATCHED HOW TO PLACE NEW APPLIANCE. PT CLOSED END OF BAG IF SHE WAS EMPTYING IT. JUAN DRESSING WAS TAKEN OFF IT WAS DIRTY FROM OSTOMY. INCISION/TAMIKA CLEANED. DR CHAVIRA NOTIFIED. DR HENDERSON ALSO TO SEE PT TODAY, DISCUSSED PT'S STATUS. THERAPY TO SEE PT THIS EVENING.
--- NOTE | 2019-07-14 19:36 | NUR ---
PATIENT INDEPENDENT IN ROOM. FAMILY HAS WHEELED HER OUTSIDE TWICE TODAY. NO NEEDS AT THIS TIME. CALL LIGHT IN REACH.
--- NOTE | 2019-07-15 05:56 | NUR ---
SHIFT SUMMARY PT APPEARS TO HAVE RESTED T/O MOST OF SHIFT WITH NO ACUTE CHANGES. ABD TAMIKA APPEAR C/D/I. OSTOMY IN PLACE WITH APPLIANCE C/D/I; DRAINING GREENISH COLORED LIQUID STOOL. PT ABLE/WILLING TO ASSIST W/OSTOMY CARE AND STATES "STARTING TO FEEL MORE COMFORTABLE." PAIN MANAGED WITH PO MEDICATION. TOLERATING DIET, DENIES N/V. AMBULATING IN ROOM WITH SBA. ABX ADMINISTERED PER ORDERS. IS CURRENTLY RESTING IN BED WITH CALL LIGHT IN REACH. WILL CONT TO MONITOR AND GIVE REPORT TO ONCOMING RN.
[2019-07-15 07:14] LABS: BASOPHILS ABSOLUTE AUTO 0.07 K/mm3 (0.00-0.23); BASOPHILS PERCENT AUTO 0 % (0-2); EOSINOPHILS ABSOLUTE AUTO 0.29 K/mm3 (0.00-0.68); EOSINOPHILS PERCENT AUTO 1 % (0-6); Hemoglobin 8.8 g/dL (11.5-16.0); IMMATURE GRAN PERCENT AUTO 3 % (0-1); LYMPHOCYTES ABSOLUTE AUTO 1.81 K/mm3 (0.84-5.20); LYMPHOCYTES PERCENT AUTO 7 % (21-46); MONOCYTES ABSOLUTE AUTO 0.81 K/mm3 (0.16-1.47); MONOCYTES PERCENT AUTO 3 % (4-13); Mean Corpuscular HGB 29.9 pg (26.0-34.0); Mean Corpuscular HGB Conc 32.6 g/dL (31.5-36.5); Mean Platelet Volume 8.5 fL (9.1-12.4); NEUTROPHILS ABSOLUTE AUTO 23.06 K/mm3 (1.96-9.15); NEUTROPHILS PERCENT AUTO 86 % (41-73); Platelet Count 511 K/mm3 (150-400); RDW Coefficient Variation 14.4 % (11.7-14.2); RDW Standard Deviation 48.6 fL (35.1-46.3); Red Blood Cell Count 2.94 M/mm3 (3.80-5.20); White Blood Cell Count 26.84 K/mm3 (4.00-11.30)
[2019-07-15 07:25] LABS: Mean Corpuscular Volume 92 fL (80-100)
[2019-07-15 07:34] LABS: Anion Gap 10 mmol/L (6-16); Blood Urea Nitrogen 7 mg/dL (8-24); Bun/Creatinine Ratio 8.7 (12.0-20.0); CO2, Blood 20 mmol/L (21-32); Calcium, Blood 8.5 mg/dL (8.5-10.1); Chloride, Blood 103 mmol/L (98-108); Glomerular Filtration Rate >60 (60-); Glucose, Blood 103 mg/dL (70-99); Potassium, Blood 4.1 mmol/L (3.5-5.5); Sodium, Blood 133 mmol/L (136-145)
[2019-07-15 11:07] LABS: Source, Urine Voided
[2019-07-15 11:28] LABS: Bilirubin, Urine Neg (Neg); Blood, Urine Neg (Neg); Glucose Qualitative, Urine Neg (Neg); Ketones, Urine Neg (Neg); Leukocyte Esterase, Urine Neg (Neg); Nitrite, Urine Neg (Neg); Protein, Urine Neg (Neg); Urobilinogen, Urine NORM (Normal)
--- NOTE | 2019-07-15 11:28 | NUR ---
DR CHAVIRA TO SEE PT.
[2019-07-15 11:44] LABS: Appearance, Urine Clear (Clear); Color, Urine Yellow (P-Yellow)
--- NOTE | 2019-07-15 15:13 | NUR ---
PERMISSION FOR CARE PATIENT GAVE THIS STUDENT RN PERMISSION TO BE PART OF HER CARE ON 07/16/19.
--- NOTE | 2019-07-15 15:37 | NUR ---
POWER-GLIDE PLACED BY OTHER RN. IV LEVAQUIN RESTARTED. PHARMACY NOTIFIED.
--- NOTE | 2019-07-15 16:50 | NUR ---
SHIFT SUMMARY PT EATING AND DRINKING, VOIDING. PT ASSISTING WITH OSTOMY EMPTYING. PT WORKED WITH THERAPY. TELE WAS DC'D TODAY. DR RIVAS BEEN TO SEE PT WELL DR CHAVIRA. PT HAD POWER-GLIDE PLACED TODAY. PT BEEN ASSISTED WITH ADL'S PRN.
--- NOTE | 2019-07-16 03:43 | NUR ---
SHIFT SUMMARY NO ACUTE CHANGES T/O SHIFT. PAIN MANAGED WITH PO MEDICATION. PT ABLE TO WHEEL SELF OUTSIDE TO SMOKE, REFUSES SMOKING CESS. EDUCATION. OSTOMY APPEARS C/D/I, DRAINING GREEN/BROWN FLUID. PT STATES SHE WAS ABLE TO HELP MORE WITH OSTOMY TODAY AND IS WILLING TO DISCHARGE TO SNF. ABD MIDLINE INCISION C/D/I. PT APPEARS TO HAVE RESTED T/O MOST OF NIGHT. IS CURRENTLY RESTING IN BED WITH CALL LIGHT IN REACH. AWAITING MORNING LABS AND PLAN FOR POSSIBLE D/C TO SNF. WILL CONT TO MONITOR AND GIVE REPORT TO ONCOMING RN.
[2019-07-16 05:45] LABS: Hematocrit 27.1 % (33.0-51.0); Hemoglobin 8.7 g/dL (11.5-16.0); Mean Corpuscular HGB Conc 32.1 g/dL (31.5-36.5); Mean Corpuscular Volume 93 fL (80-100); Mean Platelet Volume 8.5 fL (9.1-12.4); Platelet Count 532 K/mm3 (150-400); RDW Coefficient Variation 14.6 % (11.7-14.2); RDW Standard Deviation 50.4 fL (35.1-46.3); White Blood Cell Count 16.16 K/mm3 (4.00-11.30)
[2019-07-16 06:08] LABS: Alanine Aminotransfer (ALT/SGP 14 U/L (12-78); Albumin/Globulin Ratio 0.5 (0.8-1.8); Alk Phos 132 U/L (50-136); Anion Gap 7 mmol/L (6-16); Aspartate Aminotrans (AST/SGOT 7 U/L (12-37); BASOPHILS ABSOLUTE MAN 0.16 K/mm3 (0.00-0.23); BASOPHILS PERCENT MAN 1 % (0-2); Bilirubin, Total 0.4 mg/dL (0.1-1.0); Blood Urea Nitrogen 5 mg/dL (8-24); CO2, Blood 20 mmol/L (21-32); Calcium, Blood 8.6 mg/dL (8.5-10.1); Chloride, Blood 107 mmol/L (98-108); Creatinine, Blood 0.71 mg/dL (0.40-1.00); EOSINOPHILS ABSOLUTE MAN 0.32 K/mm3 (0.00-0.68); EOSINOPHILS PERCENT MAN 2 % (0-6); Globulin, Blood 4.3 g/dL (2.2-4.0); Glomerular Filtration Rate >60 (60-); Glucose, Blood 94 mg/dL (70-99); LYMPHOCYTES ABSOLUTE MAN 1.77 K/mm3 (0.84-5.20); LYMPHOCYTES PERCENT MAN 11 % (21-46); MONOCYTES ABSOLUTE MAN 1.13 K/mm3 (0.16-1.47); MONOCYTES PERCENT MAN 7 % (4-13); MYELOCYTE ABSOLUTE MAN 0.32 K/mm3 (0.00-0.00); MYELOCYTE PERCENT MAN 2 % (0-0); NEUTROPHILS ABSOLUTE MAN 12.44 K/mm3 (1.96-9.15); Potassium, Blood 4.5 mmol/L (3.5-5.5); SEG NEUTROPHILS PERCENT MAN 77 % (41-73); Sodium, Blood 134 mmol/L (136-145); TOTAL CELLS COUNTED 100; Total Protein, Blood 6.3 g/dL (6.4-8.2)
--- NOTE | 2019-07-16 07:59 | NUR ---
dr smitha monsalve by to see pt
--- NOTE | 2019-07-16 08:20 | NUR ---
pt eating breakfast pt req pain meds
--- NOTE | 2019-07-16 12:16 | NUR ---
pt amb with physical therapy in [facility] earlier did education for colostomy teaching
--- NOTE | 2019-07-16 16:30 | NUR ---
COLOSTOMY TEACHING WITH HANDOUTS DEMONSTRATION WITH OSTOMY ALSO PT HAD LOTS OF QUESTIONS
--- NOTE | 2019-07-17 05:37 | NUR ---
SHIFT SUMMARY HAS RESTED WELL, GOOD INTAKE AND OUTPUT NOTED. C/O ANXIETY AND PAIN SEVERAL TIMES THIS SHIFT, MEDICATED PER EMAR. ILEOSTOMY INTACT, DRAINING GREEN LIQUID WITH SMALL LOOSE/SOFT FORMED STOOL. DEMONSTRATED ABILITY TO HANDLE PRODUCT WITH MINIMAL PROMPTING AND ASSISTANCE. DENIES FURTHER NEEDS OR WANTS AT THIS TIME. STATES THAT SHE WISHES THAT SHE COU;D FINISH HER RECOVERY HERE IN THE HOSPITAL. SAFETY MEASURES IN PLACE. WILL GIVE HAND OFF TO ONCOMING SHIFT USING SBAR DURING BEDSIDE REPORT.
--- NOTE | 2019-07-17 15:18 | NUR ---
REPORT CALLED TO RUDDY AT [facility]. WILL MONITOR UNTIL DISCHARGE. PT AND FAMILY AWARE PT WILL DISCHARGE TO [facility].
--- NOTE | 2019-07-17 16:01 | NUR ---
DISCHARGE PT DISCHARGED WITH TRANSPORT TO [facility] AT APPROXIMATELY 1550.
--- NOTE | 2019-07-17 16:06 | NUR ---
DISCHARGE SUMMARY: PATIENT HAD STABLE VITALS WHEN LEAVING WITH TRANSPORT. SHE WAS ABLE TO AMBULATE TO THE WHEELCHAIR WITHOUT ANY COMPLICATIONS. HER ILEOSTOMY WAS ASSESSED FOR LEAKAGE AND EMPTIED PRIOR TO LEAVING. NO LEAKING OR OTHER COMLICATIONS WITH ILEOSTOMY. HER SURGICAL SITE WAS ALSO ASSESSED AND WAS CLEAN/DRY/INTACT WITH TAMIKA OPEN TO AIR. SHE WAS TOLD TO COME BACK AND FOLLOW UP WITH THE DOCTOR NEXT WEEK TO GET TAMIKA TAKEN OUT. SHE VERBALIZED THAT SHE UNDERSTOOD AND WOULD FOLLOW UP. FAMILY LEFT WITH HER AND CARRIED HER BAGS OF ITEMS FOR HER. PATIENT WAS PLEASENT UPON LEAVING IN THE WHEELCHAIR WITH TRANSPORT.
== END 2019-07-17 16:02 | DRG 853 ==
LOC: ER 00:52 → ERHOLD 05:48 → SURS 05:48
PROVIDERS: Emergency Medicine; Family Medicine; Internal Medicine Gastroenterology; Surgery; ADMIT Internal Medicine
PROC: 0DH673Z Insertion of Infusion Device into Stomach, Via Natural or Artificial Opening (ICD-10-PCS; 2019-07-09)
PROC: 0DTN0ZZ Resection of Sigmoid Colon, Open Approach (ICD-10-PCS; principal; 2019-07-09 16:30)
PROC: 0D1B0Z4 Bypass Ileum to Cutaneous, Open Approach (ICD-10-PCS; 2019-07-09 16:30)
DX: A41.9 Sepsis, unspecified organism (principal); J18.9 Pneumonia, unspecified organism; J96.01 Acute respiratory failure with hypoxia; K56.609 Unspecified intestinal obstruction, unspecified as to partial versus complete obstruction; N17.9 Acute kidney failure, unspecified; E87.1 Hypo-osmolality and hyponatremia; E87.2 Acidosis; K50.90 Crohn's disease, unspecified, without complications; B37.0 Candidal stomatitis; E44.0 Moderate protein-calorie malnutrition; R65.20 Severe sepsis without septic shock; J44.9 Chronic obstructive pulmonary disease, unspecified; I10 Essential (primary) hypertension; E03.9 Hypothyroidism, unspecified; F20.9 Schizophrenia, unspecified; E78.5 Hyperlipidemia, unspecified; K21.9 Gastro-esophageal reflux disease without esophagitis; F31.9 Bipolar disorder, unspecified; F41.9 Anxiety disorder, unspecified; K59.00 Constipation, unspecified; G89.29 Other chronic pain; E83.42 Hypomagnesemia; E83.39 Other disorders of phosphorus metabolism; E87.6 Hypokalemia; D64.9 Anemia, unspecified; Z87.891 Personal history of nicotine dependence
CPT/HCPCS: 0099U; 36415; 36430; 71046; 71250; 74176; 80048; 80053; 80069; 81003; 82550; 83605; 83735; 83880; 84100; 84484; 85025; 86850; 86900; 86901; 86923; 87040; 88307; 93005; 93010; 94760; 96361; 96374; 96375; 96376; 97110; 97112; 97116; 97162; 97530; 99285-25; A9270-GY; J1100; J1650; J1885; J1956; J2060; J2250; J2405; J2543; J2704; J2710; J3010; J3475; J3480; J7030; J7050; P9016

== ENCOUNTER 2019-11-28 17:32 | Inpatient (IN) | payer OTHER ==
[~2019-11-28] VITALS: Ht 162.6 cm; Wt 36.0 kg
[~2019-11-28 17:32] MED LIST changes: +ALBU90OI INH; +BUDESONIDE1 MG/2 ML NEB; +Hydrocodone-Ap1 EA20 PO; +OMEP20ER PO; -Omeprazole20 M1 PO; +STELARA90 MG/1 ML SC
[2019-11-28] MEDS ORDERED: Amitriptyline100 MG (18:15)
[2019-11-28] MEDS ORDERED: SPIRIVA RESPIMAT4 G3 INH (18:16)
[2019-11-28] MEDS ORDERED: CLOT10 MT ×2 (18:16→20:09)
[2019-11-28 19:46] LABS: Source, Urine Clean Catch
[2019-11-28 19:49] LABS: Blood, Urine Neg (Neg); Glucose Qualitative, Urine Neg (Neg); Ketones, Urine Neg (Neg); Leukocyte Esterase, Urine 2+ (Neg); Nitrite, Urine Neg (Neg); Protein, Urine 1+ (Neg); Urobilinogen, Urine NORM (Normal)
[2019-11-28] MEDS ORDERED: HYDROCODONE-AC1 EAC7 PO (19:51)
[2019-11-28] MEDS ORDERED: ZIPRASIDONE HCL20 MG PO (19:55)
[2019-11-28 19:56] LABS: Appearance, Urine Clear (Clear); Bilirubin, Urine 1+ (Neg); Color, Urine Yellow (P-Yellow)
[2019-11-28 19:57] LABS: BASOPHILS ABSOLUTE AUTO 0.05 K/mm3 (0.00-0.23); BASOPHILS PERCENT AUTO 0 % (0-2); EOSINOPHILS ABSOLUTE AUTO 0.01 K/mm3 (0.00-0.68); EOSINOPHILS PERCENT AUTO 0 % (0-6); Hematocrit 44.1 % (33.0-51.0); Hemoglobin 14.7 g/dL (11.5-16.0); IMMATURE GRAN ABSOLUTE AUTO 0.16 K/mm3 (0.00-0.10); IMMATURE GRAN PERCENT AUTO 1 % (0-1); LYMPHOCYTES ABSOLUTE AUTO 1.09 K/mm3 (0.84-5.20); LYMPHOCYTES PERCENT AUTO 6 % (21-46); MONOCYTES ABSOLUTE AUTO 0.59 K/mm3 (0.16-1.47); MONOCYTES PERCENT AUTO 3 % (4-13); Mean Corpuscular HGB 28.5 pg (26.0-34.0); Mean Corpuscular HGB Conc 33.3 g/dL (31.5-36.5); Mean Corpuscular Volume 86 fL (80-100); NEUTROPHILS ABSOLUTE AUTO 17.85 K/mm3 (1.96-9.15); NEUTROPHILS PERCENT AUTO 90 % (41-73); Platelet Count 510 K/mm3 (150-400); RDW Coefficient Variation 14.3 % (11.7-14.2); Red Blood Cell Count 5.15 M/mm3 (3.80-5.20); White Blood Cell Count 19.75 K/mm3 (4.00-11.30)
[2019-11-28 19:58] LABS: Red Blood Cells, Urine Not Seen /hpf (0-2)
[2019-11-28 19:59] LABS: Bacteria Few /hpf; Squamous Epithelial Cells Rare /hpf (Few)
[2019-11-28 20:21] LABS: Magnesium, Blood 2.1 mg/dL (1.6-2.4)
[2019-11-28 20:26] LABS: Albumin, Blood 3.5 g/dL (3.4-5.0); Albumin/Globulin Ratio 0.7 (0.8-1.8); Bilirubin, Total 0.4 mg/dL (0.1-1.0); Bun/Creatinine Ratio 24.6 (12.0-20.0); Creatinine, Blood 3.5 mg/dL (0.40-1.00); Globulin, Blood 4.7 g/dL (2.2-4.0); Potassium, Blood 5.1 mmol/L (3.5-5.5); Total Protein, Blood 8.2 g/dL (6.4-8.2)
[2019-11-28 20:43] LABS: Phosphorus, Blood 6.8 mg/dL (2.5-4.9)
[2019-11-29 01:20] LABS: Anion Gap 14 mmol/L (6-16); Blood Urea Nitrogen 86 mg/dL (8-24); Bun/Creatinine Ratio 27.5 (12.0-20.0); CO2, Blood 18 mmol/L (21-32); Calcium, Blood 8.4 mg/dL (8.5-10.1); Chloride, Blood 87 mmol/L (98-108); Creatinine, Blood 3.13 mg/dL (0.40-1.00); Glomerular Filtration Rate 16 (60-); Glucose, Blood 89 mg/dL (70-99); Phosphorus, Blood 5.2 mg/dL (2.5-4.9); Potassium, Blood 4.2 mmol/L (3.5-5.5); Sodium, Blood 119 mmol/L (136-145)
[2019-11-29 03:44] LABS: BASOPHILS ABSOLUTE AUTO 0.01 K/mm3 (0.00-0.23); BASOPHILS PERCENT AUTO 0 % (0-2); EOSINOPHILS ABSOLUTE AUTO 0.15 K/mm3 (0.00-0.68); EOSINOPHILS PERCENT AUTO 1 % (0-6); Hematocrit 33.6 % (33.0-51.0); Hemoglobin 11.5 g/dL (11.5-16.0); IMMATURE GRAN ABSOLUTE AUTO 0.15 K/mm3 (0.00-0.10); IMMATURE GRAN PERCENT AUTO 1 % (0-1); LYMPHOCYTES PERCENT AUTO 15 % (21-46); MONOCYTES ABSOLUTE AUTO 0.74 K/mm3 (0.16-1.47); MONOCYTES PERCENT AUTO 5 % (4-13); Mean Corpuscular HGB 28.8 pg (26.0-34.0); Mean Corpuscular HGB Conc 34.2 g/dL (31.5-36.5); Mean Corpuscular Volume 84 fL (80-100); NEUTROPHILS ABSOLUTE AUTO 10.59 K/mm3 (1.96-9.15); NEUTROPHILS PERCENT AUTO 78 % (41-73); Platelet Count 369 K/mm3 (150-400); RDW Coefficient Variation 13.9 % (11.7-14.2); RDW Standard Deviation 42.8 fL (35.1-46.3); Red Blood Cell Count 3.99 M/mm3 (3.80-5.20); White Blood Cell Count 13.64 K/mm3 (4.00-11.30)
[2019-11-29 04:01] LABS: Albumin, Blood 2.5 g/dL (3.4-5.0); Anion Gap 11 mmol/L (6-16); Blood Urea Nitrogen 85 mg/dL (8-24); Bun/Creatinine Ratio 30.6 (12.0-20.0); CO2, Blood 19 mmol/L (21-32); Calcium, Blood 7.8 mg/dL (8.5-10.1); Chloride, Blood 91 mmol/L (98-108); Creatinine, Blood 2.78 mg/dL (0.40-1.00); Glomerular Filtration Rate 19 (60-); Glucose, Blood 127 mg/dL (70-99); Phosphorus, Blood 4.8 mg/dL (2.5-4.9); Potassium, Blood 4.1 mmol/L (3.5-5.5); Sodium, Blood 121 mmol/L (136-145)
--- NOTE | 2019-11-29 07:59 | NUR ---
SUMMARY PT ADMITTED FOR MALNUTRITION AND PLACEMENT OF DOBHOFF FEEDING TUBE. ALTHOUGH DUE TO PT HAVING MULTIPLE NASAL FX AND GENERAL THINNESS AND NASAL STRUCTURE, STAFF WAS UNABLE TO PLACE DOBHOFF. ATTEMPTS PER PCU AMND ICU CHARGE RNS WITH SAME RESULT. I NOTIFIED FLRO AND CLINIMIX WAS STARTED PER ADDITIONAL IV SITE.DAY RN AWARE THAT FLOR WOULD LIKE TUBE PLACED [facility] RADIOLOGY ASSIST TODAY. SEE ADMIT DOCUMENTATION. PT VERB MINIMAL NAUSEA SINCE ADMIT
--- NOTE | 2019-11-29 18:51 | NUR ---
Shift summary PO intake encouraged. Order for Ensure every 8 hours placed by EFM provider. VSS. Patient on room air. Zofran given twice for nausea. Patient tolerated a little food brought in by jailene today. Patient is a SBA to the BSC. Urine is more clear than it was this morning. Ileostomy putting out brown/vincent liquid. Mepilex placed to all bony prominences as pressure ulcer prevention. Family at bedside throughout the day offering support. Clinimix and NS infusing. Call light within patient reach.
[2019-11-30 04:29] LABS: BASOPHILS ABSOLUTE AUTO 0.02 K/mm3 (0.00-0.23); BASOPHILS PERCENT AUTO 0 % (0-2); EOSINOPHILS ABSOLUTE AUTO 0.49 K/mm3 (0.00-0.68); EOSINOPHILS PERCENT AUTO 4 % (0-6); Hematocrit 37.5 % (33.0-51.0); Hemoglobin 12.2 g/dL (11.5-16.0); IMMATURE GRAN ABSOLUTE AUTO 0.14 K/mm3 (0.00-0.10); IMMATURE GRAN PERCENT AUTO 1 % (0-1); LYMPHOCYTES ABSOLUTE AUTO 1.62 K/mm3 (0.84-5.20); LYMPHOCYTES PERCENT AUTO 13 % (21-46); MONOCYTES ABSOLUTE AUTO 0.82 K/mm3 (0.16-1.47); MONOCYTES PERCENT AUTO 6 % (4-13); Mean Corpuscular HGB 28.4 pg (26.0-34.0); Mean Corpuscular HGB Conc 32.5 g/dL (31.5-36.5); Mean Corpuscular Volume 87 fL (80-100); NEUTROPHILS ABSOLUTE AUTO 9.88 K/mm3 (1.96-9.15); NEUTROPHILS PERCENT AUTO 76 % (41-73); Platelet Count 425 K/mm3 (150-400); RDW Coefficient Variation 14.3 % (11.7-14.2); RDW Standard Deviation 45.7 fL (35.1-46.3); White Blood Cell Count 12.97 K/mm3 (4.00-11.30)
[2019-11-30 04:49] LABS: Magnesium, Blood 2.2 mg/dL (1.6-2.4)
[2019-11-30 04:53] LABS: Alanine Aminotransfer (ALT/SGP 14 U/L (12-78); Albumin, Blood 2.5 g/dL (3.4-5.0); Albumin/Globulin Ratio 0.7 (0.8-1.8); Alk Phos 102 U/L (50-136); Anion Gap 7 mmol/L (6-16); Aspartate Aminotrans (AST/SGOT 15 U/L (12-37); Bilirubin, Total 0.2 mg/dL (0.1-1.0); Blood Urea Nitrogen 59 mg/dL (8-24); Bun/Creatinine Ratio 59.8 (12.0-20.0); CO2, Blood 17 mmol/L (21-32); Calcium, Blood 8.3 mg/dL (8.5-10.1); Chloride, Blood 105 mmol/L (98-108); Creatinine, Blood 0.99 mg/dL (0.40-1.00); Globulin, Blood 3.6 g/dL (2.2-4.0); Glomerular Filtration Rate >60 (60-); Glucose, Blood 86 mg/dL (70-99); Potassium, Blood 4.1 mmol/L (3.5-5.5); Sodium, Blood 129 mmol/L (136-145); Total Protein, Blood 6.1 g/dL (6.4-8.2)
--- NOTE | 2019-11-30 06:30 | NUR ---
SHIFT SUMMARY PT A&O; CALLS APPROPRIATELY; DENIES CHEST PAIN; VSS; NSR NOTED ON TELE PER SUPPORT DBA; SBA TO BSC; ILLEOSTOMY DRAINED BROWN LIQUID STOOL; CLINIMIX & NS INFUSING; PT SEEMS TO ENJOY TALKING TO STAFF AND APPRECIATE THEIR PRESENCE; PT EATS PERSONAL CANDY FREQUENTLY; PO FLUIDS ENCOURAGED; CALL LIGHT IN REACH; BED IN LOWEST POSITION; WILL CONTINUE TO MONITOR CLOSELY UNTIL HAND OFF TO DAY SHIFT RN.
--- NOTE | 2019-11-30 19:49 | NUR ---
SHIFT SUMMARY PT HAS BEEN ADMITTED FOR MALNUTRITION. AT THIS TIME PT INTAKE IS BEING ENCOURAGED AND ADJUSTMENTS HAVE BEEN MADE TO PT'S DIET FOR SMALL FREQUENT MEALS WITH INCREASED CALORIES. SHE IS GETTING SHAKES IN ADDITION TO MEALS WHICH SHE SEEMS TO TOLERATE BETTER THAN FOOD. AT THIS TIME NO PLAN FOR IV NUTRITION PER DR. RIVAS. KRIS HAS BEEN A SBA TO THE BEDSIDE COMMODE TODAY. STAFF HAS ASSISTED WITH OSTOMY CARE. OSTOMY HAS HAD LARGE AMOUNTS OF LIQUID OUTPUT. PT WAS OFFERED REPOSITIONING ASSISTANCE SINCE SHE HAS MANY LESVIA PROMINENCES; DECLINED REPOSITIONING. SHE IS ABLE TO REPOSITION HERSELF IN BED BUT COMPLAINED OF COCCYX PAIN SO ASSISTANCE WAS OFFERED. PT REQUESTED TO GO OUTSIDE AND SMOKE THIS EVENING; R/T COVID19 POLICY IS FOR PT'S TO NOT GO OUTSIDE, PT WAS EDUCATED. PT REPORTED INCREASED ANXIETY AND CIGARET CRAVINGS DESPITE NICOTINE PATCH IN PLACE. DR. KONG WAS NOTIFIED AND PRESCRIBED MEDICATION FOR ANXIETY. VSS. REPORT GIVEN TO LILIYA RN.
[2019-12-01 04:06] LABS: BASOPHILS ABSOLUTE AUTO 0.02 K/mm3 (0.00-0.23); BASOPHILS PERCENT AUTO 0 % (0-2); EOSINOPHILS ABSOLUTE AUTO 0.42 K/mm3 (0.00-0.68); EOSINOPHILS PERCENT AUTO 4 % (0-6); Hematocrit 36.3 % (33.0-51.0); Hemoglobin 11.9 g/dL (11.5-16.0); IMMATURE GRAN ABSOLUTE AUTO 0.12 K/mm3 (0.00-0.10); IMMATURE GRAN PERCENT AUTO 1 % (0-1); LYMPHOCYTES ABSOLUTE AUTO 2.33 K/mm3 (0.84-5.20); LYMPHOCYTES PERCENT AUTO 24 % (21-46); MONOCYTES ABSOLUTE AUTO 0.86 K/mm3 (0.16-1.47); MONOCYTES PERCENT AUTO 9 % (4-13); Mean Corpuscular HGB Conc 32.8 g/dL (31.5-36.5); Mean Corpuscular Volume 89 fL (80-100); NEUTROPHILS ABSOLUTE AUTO 5.93 K/mm3 (1.96-9.15); NEUTROPHILS PERCENT AUTO 61 % (41-73); Platelet Count 390 K/mm3 (150-400); RDW Coefficient Variation 14.5 % (11.7-14.2); RDW Standard Deviation 46.3 fL (35.1-46.3); White Blood Cell Count 9.68 K/mm3 (4.00-11.30)
[2019-12-01 04:29] LABS: Alanine Aminotransfer (ALT/SGP 14 U/L (12-78); Albumin, Blood 2.6 g/dL (3.4-5.0); Albumin/Globulin Ratio 0.7 (0.8-1.8); Alk Phos 89 U/L (50-136); Anion Gap 9 mmol/L (6-16); Aspartate Aminotrans (AST/SGOT 13 U/L (12-37); Bilirubin, Total 0.1 mg/dL (0.1-1.0); Blood Urea Nitrogen 38 mg/dL (8-24); Bun/Creatinine Ratio 58.5 (12.0-20.0); CO2, Blood 13 mmol/L (21-32); Calcium, Blood 8.5 mg/dL (8.5-10.1); Chloride, Blood 110 mmol/L (98-108); Creatinine, Blood 0.65 mg/dL (0.40-1.00); Globulin, Blood 3.8 g/dL (2.2-4.0); Glomerular Filtration Rate >60 (60-); Glucose, Blood 93 mg/dL (70-99); Potassium, Blood 4.4 mmol/L (3.5-5.5); Sodium, Blood 132 mmol/L (136-145); Total Protein, Blood 6.4 g/dL (6.4-8.2)
--- NOTE | 2019-12-01 06:22 | NUR ---
SHIFT SUMMARY PT A&O; PLEASANT & COMPLIANT W/ CARE; VSS; DENIES CHEST PAIN; NSR NOTED ON TELE; O2 SATS >93 ON RA; START OF SHIFT PT WAS EMOTIONAL AND DISCUSSED NEEDING TO HAVE HER DOG PUT TO SLEEP AND PT WAS STRUGGLING W/ THE DECISION SINCE SHE DOES NOT HAVE THE HELP NECESSARY TO DEAL WITH BEHAVIORAL ISSUES W/ DOG WHILE SHE IS HOSPITALIZED; THIS RN STAYED IN ROOM AND LISTENED TO PT EXPRESS FEELING; NEW ATIVAN ORDER ADMINISTERED W/ NIGHT TIME MEDS; PT LATER EXPRESSED RELIEF W/ ATIVAN AND PAIN MED REGULATION THROUGH SHIFT & EXPRESSED APPRECIATION; SBA TO BSC; ORAL CARE ENCOURAGED; PO INTAKE ENCOURAGED AND OPTIONS OFFERED; CLINIMIX INFUSING; PT CURRENTLY DENIES NEEDS; CALL LIGHT IN REACH; BED IN LOWEST POSITION; WILL CONTINUE TO MONITOR CLOSELY UNTIL HAND OFF TO DAY SHIFT RN.
--- NOTE | 2019-12-01 15:39 | NUR ---
TRANSFER TO MED FLOOR REPORT CALLED TO RN. PT PLEASANT AND OK WITH TRANSFER TO MED FLOOR. CONTINUES TO STRUGGLE WITH PO INTAKE. CLINIMIX DECREASED TO 50MLS/HR.
--- NOTE | 2019-12-01 15:40 | NUR ---
ASSUMED CARE OF PATIENT. TRANSFERRED FROM PCU 14 TO ROOM 357, REPORT RECEIVED FROM PAUL HICKMAN. VSS TO DAY ON RA. ABLE TO TRANSFER TO BED WITH SBA. MULTIPLE FOAM BANDAGES TO BONY AREAS FOR PROTECTION. ORIENTED TO ROOM AND USE OF CALL LIGHT. REPORTS GOOD PAIN CONTROL AT THIS TIME. ILEOSTOMY TO RLQ CHANGES TODAY AND IS WNL. POWERGLIDE TO JAZMÍN WNL, CLINIMIX INFUSING AT 50ML/HR. PATIENT IS PLEASANT AND COOPERATIVE WITH CARE.
--- NOTE | 2019-12-02 02:49 | NUR ---
58 year old Female with severe protein winsome malnutrition continues to have minimal oral intake sips only. on Clinimix 50 ml hr for nutritional support. On 3 day winsome count due to malnutrition. CO abd pain medicated with 2 norco 5/325 mg tabs also gave antiemetic. CO heartburn with oral intake. Has oral thrush with 5 x day mycelex trouch to treat. tounge pink & dry. PT has patent ileostomy stoma pink , some thick vincent stool out appliance. PT has some psych diagnosis bipolar restless legstakes meds at HS plus gave rx ativan 0.5 mg at hs with norco 5/325 mg two tabs & PT not asleep says she is afraid she will have reflux or GI bleed. Will update MD on need for med for heartburn PT was on geodon as outpt & has hx of antiacid use as well as antiemetic. Support offered.
--- NOTE | 2019-12-02 04:32 | NUR ---
DR SANTOS updated on PT's complaints of GI distress with reflux. DR RX GI coctail Q 6 hours PRN GI distress.
[2019-12-02 05:54] LABS: BASOPHILS ABSOLUTE AUTO 0.03 K/mm3 (0.00-0.23); BASOPHILS PERCENT AUTO 0 % (0-2); EOSINOPHILS ABSOLUTE AUTO 0.46 K/mm3 (0.00-0.68); EOSINOPHILS PERCENT AUTO 4 % (0-6); Hematocrit 32.6 % (33.0-51.0); Hemoglobin 10.8 g/dL (11.5-16.0); IMMATURE GRAN ABSOLUTE AUTO 0.17 K/mm3 (0.00-0.10); IMMATURE GRAN PERCENT AUTO 2 % (0-1); LYMPHOCYTES ABSOLUTE AUTO 2.41 K/mm3 (0.84-5.20); LYMPHOCYTES PERCENT AUTO 22 % (21-46); MONOCYTES ABSOLUTE AUTO 0.98 K/mm3 (0.16-1.47); MONOCYTES PERCENT AUTO 9 % (4-13); Mean Corpuscular HGB 28.6 pg (26.0-34.0); Mean Corpuscular HGB Conc 33.1 g/dL (31.5-36.5); Mean Corpuscular Volume 86 fL (80-100); Mean Platelet Volume 9.3 fL (9.1-12.4); NEUTROPHILS ABSOLUTE AUTO 6.85 K/mm3 (1.96-9.15); NEUTROPHILS PERCENT AUTO 63 % (41-73); Platelet Count 388 K/mm3 (150-400); RDW Coefficient Variation 14.3 % (11.7-14.2); RDW Standard Deviation 44.7 fL (35.1-46.3); Red Blood Cell Count 3.78 M/mm3 (3.80-5.20)
[2019-12-02 06:16] LABS: Anion Gap 8 mmol/L (6-16); Blood Urea Nitrogen 36 mg/dL (8-24); Bun/Creatinine Ratio 66.3 (12.0-20.0); CO2, Blood 20 mmol/L (21-32); Calcium, Blood 8.6 mg/dL (8.5-10.1); Chloride, Blood 104 mmol/L (98-108); Creatinine, Blood 0.54 mg/dL (0.40-1.00); Glomerular Filtration Rate >60 (60-); Glucose, Blood 86 mg/dL (70-99); Potassium, Blood 4.5 mmol/L (3.5-5.5); Sodium, Blood 132 mmol/L (136-145)
[2019-12-02] MEDS ORDERED: ONDA4 PO (16:22)
[2019-12-02] MEDS ORDERED: Promethazine12.5 M1 PO (16:25)
--- NOTE | 2019-12-02 18:53 | NUR ---
PATIENT IS A/OX4, UP INDEPENDENTLY IN ROOM. ADMITTED FOR SEVERE MALNUTRITION, ON A CALORIE COUNT. PATIENT HAS VERY POOR APPETITE AND NEEDS ENCOURAGEMENT TO EAT. POWERGLIDE TO R UPPER ARM. CLINIMIX INFUSING AT 50ML/HR. FOAM DRESSINGS TO BONY AREAS FOR PROTECTION. DIETARY AND GI CONSULT TODAY FOR PARENTERAL NUTRITION OR POSSIBLE PEG TUBE PLACEMENT. PATIENT ANXIOUS AT TIMES, ATIVAN ORDERED PRN. PAINFUL "EVERYWHERE" PER PATIENT, MEDICATING WITH NORCO. TAKES PILLS WHOLE WITH WATER. VSS, ON RA. AMBULATED IN HALLS TODAY WITH FWW. CONTACT PRECAUTIONS FOR MRSA IN THE URINE.
--- NOTE | 2019-12-02 22:25 | NUR ---
DR Cristobal in to see PT consulting about peg tube placement for severe malnutrition. Planning to ask DR Wilson to place feeding tube. PT has zero to bites oral intake, ileostomy, voids.
--- NOTE | 2019-12-03 04:02 | NUR ---
PT with urostomy since July 2019 on clinimix to tx severe malnutrition. She continues very poor oral intake. DR Cristobal consulted for peg tube placement planning to have placed soon. PT CO nausea & GI upset gave GI cocktail with helpful effect. On calorie count ate only bites. Did drink creame soda x 1 . 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 No output urostomy earlier, showered appliance change on day shift. PT co hurting everywhere norco 5/325 two tabs seral times with mild helpful effect. Medicated with ativan 0.5 mg tab helpful at HS.
--- NOTE | 2019-12-03 19:41 | NUR ---
SHIFT SUMMARY: NO ACUTE CHANGES TO REPORT THIS SHIFT. PT A&O; ANXIOUS; COOPERATIVE WITH CARE. MEDICATED FOR GENERALIZED PAIN PER EMAR. PT OUTSIDE TO SMOKE ONE TIME THIS SHIFT. CONSULT TO INTERVENTIONAL RADIOLOLGY (DR CHI) THIS SHIFT R/T PEG TUBE PLACEMENT. CLINIMIX CONTINUING. REPORT GIVEN TO ONCOMING RN.
[2019-12-04 05:23] LABS: BASOPHILS ABSOLUTE AUTO 0.06 K/mm3 (0.00-0.23); BASOPHILS PERCENT AUTO 1 % (0-2); EOSINOPHILS ABSOLUTE AUTO 0.26 K/mm3 (0.00-0.68); EOSINOPHILS PERCENT AUTO 2 % (0-6); Hematocrit 35.2 % (33.0-51.0); Hemoglobin 11.3 g/dL (11.5-16.0); IMMATURE GRAN ABSOLUTE AUTO 0.14 K/mm3 (0.00-0.10); IMMATURE GRAN PERCENT AUTO 1 % (0-1); LYMPHOCYTES ABSOLUTE AUTO 2.37 K/mm3 (0.84-5.20); LYMPHOCYTES PERCENT AUTO 22 % (21-46); MONOCYTES PERCENT AUTO 10 % (4-13); Mean Corpuscular HGB 28.6 pg (26.0-34.0); Mean Corpuscular HGB Conc 32.1 g/dL (31.5-36.5); Mean Corpuscular Volume 89 fL (80-100); Mean Platelet Volume 9.2 fL (9.1-12.4); NEUTROPHILS PERCENT AUTO 64 % (41-73); Platelet Count 433 K/mm3 (150-400); RDW Coefficient Variation 14.8 % (11.7-14.2); RDW Standard Deviation 48.1 fL (35.1-46.3); Red Blood Cell Count 3.95 M/mm3 (3.80-5.20); White Blood Cell Count 11.03 K/mm3 (4.00-11.30)
[2019-12-04 05:53] LABS: Albumin, Blood 2.8 g/dL (3.4-5.0); Anion Gap 8 mmol/L (6-16); Blood Urea Nitrogen 25 mg/dL (8-24); Bun/Creatinine Ratio 45.3 (12.0-20.0); CO2, Blood 22 mmol/L (21-32); Calcium, Blood 9.1 mg/dL (8.5-10.1); Chloride, Blood 103 mmol/L (98-108); Creatinine, Blood 0.55 mg/dL (0.40-1.00); Glomerular Filtration Rate >60 (60-); Glucose, Blood 94 mg/dL (70-99); Phosphorus, Blood 3.5 mg/dL (2.5-4.9); Potassium, Blood 4.1 mmol/L (3.5-5.5); Sodium, Blood 133 mmol/L (136-145)
--- NOTE | 2019-12-04 05:56 | NUR ---
SUMMARY PT HAD NO NEW COMPLAINTS. PT REQUESTED SOME SNACKS DURING THE SHIFT. PT DID REPORT SOME PAIN AND NAUSEA AND WAS TX PER EMAR. PT DID HAVE SOME LIQUID STOOL NOTED DURING THE NIGHT. PT CURRENTLY SLEEPING IN NO DISTRESS. CALL LIGHT IN REACH.
[2019-12-04] MEDS ORDERED: ZIPR20 PO (15:42)
[2019-12-04] MEDS ORDERED: IPRAT-ALBUT 0.5-3 ML INH (15:44)
[2019-12-04] MEDS ORDERED: NARCAN4 M1 INH (15:45)
[2019-12-04] MEDS ORDERED: Milk Of Ma400 MG/5 M PO (15:47)
--- NOTE | 2019-12-04 17:33 | NUR ---
SHIFT SUMMARY PT IS PLEASANT AND COOPERATIVE. SHE SOMETIMES GOES OUTSIDE WITH A FAMILY MEMBER TO SMOKE. PT DOES NOT HAVE IV ACCESS, CHARGE NURSE IS AWARE. PT IS MEDICATED FOR PAIN WITH TWO TABS OF NORCO. DR. CHI WILL POSSIBLY PLACE A PEG TUBE TOMORROW DEPENEDING ON SCHEDULE. SOFT PROTRUSION NOTED AROUND OSTOMY SITE. PT HAS YET TO BE SEEN BY DR. CHI. VS REVIEWED. WILL CONTINUE TO MONITOR.
[2019-12-05 05:47] LABS: BASOPHILS ABSOLUTE AUTO 0.04 K/mm3 (0.00-0.23); BASOPHILS PERCENT AUTO 0 % (0-2); EOSINOPHILS ABSOLUTE AUTO 0.36 K/mm3 (0.00-0.68); EOSINOPHILS PERCENT AUTO 4 % (0-6); Hematocrit 35.1 % (33.0-51.0); Hemoglobin 11.4 g/dL (11.5-16.0); IMMATURE GRAN PERCENT AUTO 1 % (0-1); LYMPHOCYTES ABSOLUTE AUTO 2.86 K/mm3 (0.84-5.20); LYMPHOCYTES PERCENT AUTO 31 % (21-46); MONOCYTES ABSOLUTE AUTO 0.87 K/mm3 (0.16-1.47); MONOCYTES PERCENT AUTO 9 % (4-13); Mean Corpuscular HGB 28.7 pg (26.0-34.0); Mean Corpuscular HGB Conc 32.5 g/dL (31.5-36.5); Mean Corpuscular Volume 88 fL (80-100); Mean Platelet Volume 9.2 fL (9.1-12.4); NEUTROPHILS ABSOLUTE AUTO 5.12 K/mm3 (1.96-9.15); NEUTROPHILS PERCENT AUTO 55 % (41-73); Platelet Count 473 K/mm3 (150-400); RDW Coefficient Variation 14.6 % (11.7-14.2); RDW Standard Deviation 46.5 fL (35.1-46.3); Red Blood Cell Count 3.97 M/mm3 (3.80-5.20); White Blood Cell Count 9.35 K/mm3 (4.00-11.30)
[2019-12-05 06:05] LABS: Albumin, Blood 2.6 g/dL (3.4-5.0); Anion Gap 9 mmol/L (6-16); Blood Urea Nitrogen 17 mg/dL (8-24); Bun/Creatinine Ratio 31.9 (12.0-20.0); CO2, Blood 18 mmol/L (21-32); Calcium, Blood 8.4 mg/dL (8.5-10.1); Chloride, Blood 109 mmol/L (98-108); Creatinine, Blood 0.53 mg/dL (0.40-1.00); Glomerular Filtration Rate >60 (60-); Glucose, Blood 91 mg/dL (70-99); Phosphorus, Blood 3.8 mg/dL (2.5-4.9); Potassium, Blood 4.6 mmol/L (3.5-5.5); Sodium, Blood 136 mmol/L (136-145)
--- NOTE | 2019-12-05 18:15 | NUR ---
SHIFT SUMMARY. A&OX4, INDEPENDENT IN ROOM. PLEASANT AND COOPERATIVE WITH CARE. PT CONTINUES WITH IV CLINIMIX AND IS TOLERATING WELL. PT WITH FAIR APPETITE WITH MEALS. PT REPORTED ONE EPISODE OF NAUSEA THAT WAS MANAGED WELL WITH CURRENT ORDERS. PT REPORTED PAIN T/O SHIFT THAT HAS BEEN MANGED WELL WITH CURRENT ORDERS. PT DENIES SOB. FAMILY IN TO VISIT THIS AFTERNOON AND ASSISTED PT OUT TO SMOKE VIA W/C. NO NEW CHANGES OR CONCERNS.
--- NOTE | 2019-12-06 05:08 | NUR ---
HIGH RAW SUGAR BOILER SUMMARY Patient was awake most of night. Medicated twice for primarily low back pain, which patient also stated was all over. Patient ate 100% of her snack as well as a full soda prior to bedtime. New IV placed in her right wrist by battery charger tester. Also medicated twice for nausea overnight
[2019-12-06 05:29] LABS: Albumin, Blood 2.7 g/dL (3.4-5.0); Anion Gap 6 mmol/L (6-16); Blood Urea Nitrogen 16 mg/dL (8-24); Bun/Creatinine Ratio 33.1 (12.0-20.0); CO2, Blood 19 mmol/L (21-32); Calcium, Blood 8.8 mg/dL (8.5-10.1); Chloride, Blood 108 mmol/L (98-108); Creatinine, Blood 0.48 mg/dL (0.40-1.00); Glomerular Filtration Rate >60 (60-); Glucose, Blood 96 mg/dL (70-99); Phosphorus, Blood 3.9 mg/dL (2.5-4.9); Potassium, Blood 4.7 mmol/L (3.5-5.5); Sodium, Blood 133 mmol/L (136-145)
--- NOTE | 2019-12-06 17:12 | NUR ---
SHIFT SUMMARY PATIENT MEDCIATED X2 FOR PAIN AND X1 FOR NAUSEA. PATIENT DENIES SHORTNESS OF BREATH. PATIENT UP INDEPENDENT TO BSC, SBA W/FWW. PATIENT ATTEMPTING TO INCREASE HER PO INTAKE. PEG TUBE PLACEMENT PLANNED FOR SUNDAY. CALL LIGHT IN REACH.
--- NOTE | 2019-12-07 04:30 | NUR ---
SHIFT SUMMARY PT CONTINUES TO REPORT POOR APPETITE AND INTERMITTENT NAUSEA. PT STATES THAT SHE ATE VERY LITTLE OF HER DINNER. CLINIMIX CONTINUES TO INFUSE. PT MEDICATED FOR PAIN PER EMAR. PT INDEPENDENT TO [facility] AND HAS BEEN CHANGING AND CARING FOR HER OSTOMY INDEPENDENTLY. OSTOMY WITH SOFT BROWN OUTPUT. SMALL TO MODERATE AMOUNT. VITALS ARE STABLE. NO ACUTE CHANGES IN ASSESSMENT. BED IN LOWEST POSITION, CALL LIGHT WITHIN REACH.
[2019-12-07 05:15] LABS: Albumin, Blood 2.6 g/dL (3.4-5.0); Anion Gap 8 mmol/L (6-16); Blood Urea Nitrogen 25 mg/dL (8-24); Bun/Creatinine Ratio 45.5 (12.0-20.0); CO2, Blood 18 mmol/L (21-32); Calcium, Blood 8.7 mg/dL (8.5-10.1); Chloride, Blood 106 mmol/L (98-108); Creatinine, Blood 0.55 mg/dL (0.40-1.00); Glomerular Filtration Rate >60 (60-); Glucose, Blood 99 mg/dL (70-99); Phosphorus, Blood 4.8 mg/dL (2.5-4.9); Sodium, Blood 132 mmol/L (136-145)
--- NOTE | 2019-12-07 16:53 | NUR ---
SHIFT SUMMARY- PT A/OX4, INDEP UP TO BSC AND BATHROOM. LS CLEAR, ON RA. HRR. PT MEDICATED WITH NORCO T/O THE DAY FOR GENERALIZED PAIN. ILEOSTOMY TO RLQ WITH GOOD OUTPUT, PT CHANGED APPLIANCE TODAY AFTER SHOWER, SOME REDNESS NOTED AROUND STOMA WELL HERNIA. NEW IV TO JAZMÍN, RUNNING CLINIMIX AT 50. PREVENTATIVE MEPILEX PLACED TO SPINE, SACRAL AND BUTTOCKS. POSS PEG TUBE PLACEMENT TOMORROW. NO OTHER ACUTE CHANGES THIS SHIFT.
--- NOTE | 2019-12-08 04:08 | NUR ---
SHIFT SUMMARY PT HAS HAD NO ACUTE CHANGES THIS SHIFT, MEDICATED PER MAR FOR GENERAL PAIN & 1X FOR NAUSEA, NPO SINCE MIDNIGHT FOR PEG PLACEMENT THIS AM, SLEPT T/O THE NIGHT & IS SLEEPING AT THIS TIME, CALL LIGHT IN REACH, WILL CONT TO MONITOR UNTIL REPORT GIVEN TO DAY RN.
--- NOTE | 2019-12-08 11:42 | NUR ---
VIDHI VALENTINO 10 FR PLACED. PLACED TO SUCTION WITH CLEAR LIQUID OUT. GURGLING OVER STOMACH AREA WHEN AIR PLACED IN THRU TUBE. TO [facility] FOR PEG TUBE PLACEMENT.
--- NOTE | 2019-12-08 17:33 | NUR ---
ALERT. ORIENTED. HAD GASTRIC TUBE PLACED. IV RUNNING CLINIMEX. MEDICATED FOR PAIN "ALL OVER" AND ABD PAIN POST PROCEDURE. POSS D'C TOMORROW. CACHETIC. NO ACUTE CHANGES. WCTM
[2019-12-08 20:32] LABS: Source, Urine Voided
[2019-12-08 20:33] LABS: Appearance, Urine Clear (Clear); Bilirubin, Urine Neg (Neg); Blood, Urine Neg (Neg); Color, Urine Yellow (P-Yellow); Glucose Qualitative, Urine Neg (Neg); Ketones, Urine Neg (Neg); Leukocyte Esterase, Urine Neg (Neg); Nitrite, Urine Neg (Neg); Protein, Urine Neg (Neg); Specific Gravity, Urine 1.015 (1.003-1.022); Urobilinogen, Urine NORM (Normal)
--- NOTE | 2019-12-08 20:48 | NUR ---
ASSUMED CARE: KRIS WAS OUT FOR A WALK AT START OF SHIFT. SHE WENT FOR A SMOKE WITH A FAMILY FRIEND. SHE REPORTS PAIN IN ABDOMIN RANGING AROUND 7-8. SHE JUST GOT DONE VOMITING WELL. ADMINISHED NAUSEA MEDS. SLIGHT FEVER NOTED AT 100. COULD BE DUE TO VOMITING. UA WAS SENT TO LAB ALREADY BY [facility]. DRESSING TO LEFT UPPER GASTRIC TUBE SHOWS BLOODY DRAINAGE. REMOVED DRESSING WHICH WAS VERY HARD AND IT ENDED UP PULLING SOME ON THE TUBE. WHEN REMOVING THE DRESSING NOTED THAT THE PATIENT HAD POPPED ONE OF THE ROUND STITCHED IN THINGS. CLEANSED AND ROTATED THE TUBE. PLACED GAUZE OVER SITE AND TAPED EDGES ONLY SO WE CAN WATCH IT, IF NEEDS TO REDRESS WILL NOT PULL ON TUBE. ADMINISHED PAIN MEDS AND OTHER MEDS, SHE HAS NO PROBLEMS SWALLOWING. HOOKED UP CLINIMAX. DENIES ANY OTHER NEEDS AT THIS TIME. WILL CONTINUE TO MONITOR.
--- NOTE | 2019-12-09 05:11 | NUR ---
SHIFT SUMMARY; KRIS WALKED WITH WALKER AT START OF SHIFT. SHE HAS BEEN INDEPENDENT TO [facility] [place] ALL NIGHT. ILLIOSTOMY OUTPUT LIQUID BROWN STOOL, PATIENT ABLE TO CARE FOR HER OWN OSTOMY. PEG TUBE TO LEFT UPPER GASTRIC AREA, HAD BLOODY DRAINAGE AFTER PATIENT VOMITED LAST NIGHT. DRESSING WAS CHANGED, ON REMOVING THE DRESSING THERE WAS A SMALL ROUND SECURE DEVICE STUCK TO THE DRESSING AND WAS NOT ATTACHED UNDERNEATH THE PEG TUBE LIKE THE OTHER TWO PRESENT. THIS POSSIBLY WAS DISLODGED WHEN SHE WAS VOMITING. CLEANSED AREA AND APPLIED NEW DRESSING. TUBE WAS ROTATED SLIGHTLY. PAIN HAS BEEN MANAGED WITH NORCO 2 TABS EVERY 4 HOURS. NAUSEA MANAGED WITH ZOFRAN. CLINIMAX STILL INFUSING WELL. VS SLIGHTLY LOW BP IN THE 90'S. AND FEBRILE RUNNING 99-100. UA PERFORMED AND WAS NEGATIVE. NO OTHER CHANGES TO NOTE AT THIS TIME. WILL REPORT TO DAY SHIFT WHEN THEY ARRIVE. CALL LIGHT IN REACH.
--- NOTE | 2019-12-09 12:00 | NUR ---
TALKED TO [facility] ABOUT BUTTON ON FEEDING TUBE COMING OFF LAST NIGHT. STS WILL TALK TO AND GET BACK TO ME.
--- NOTE | 2019-12-09 12:00 | NUR ---
PER OK NO IV ASSESS. IV LEAKED. PATIENT HARD START AND WILL START TUBE FEEDINGS TODAY.
--- NOTE | 2019-12-09 13:29 | NUR ---
ADVISED NO IV ASSESS. CAN D'C CLINIMIX. ASK FOR ZOFRAN. CAN ORDER ZOFRAN 4 MG Q 6 HR P.O.
--- NOTE | 2019-12-09 14:30 | NUR ---
TALKED TO CHUYITA MILLER FOR ABOUT BUTTON ON FEEDING TUBE COMING OFF LAST NIGHT. PER DO NOT TURN TUBE ANY MORE AND CAN USE.
--- NOTE | 2019-12-09 15:45 | NUR ---
GIVEN WRITTEN INSTRUCTIONS ON TUBE FEEDINGS THAT BASICALLY SAID SAME THING DIETITIAN ORDERED FOR RN. REVIEWED W/PATIENT. TUBE FEEDING OF 125 ML OF ISOSOURCE 1.5 HIMANSHU W/FIBER GIVEN W/PATIENT TOLERATING WELL. WILL HAVE PATIENT DO NEXT TUBE FEEDING.
--- NOTE | 2019-12-09 18:34 | NUR ---
ALERT. ORIENTED. COOPERATIVE. SHOWN FIRST TUBE FEEDING AND PATIENT TO DO NEXT. POSSIBLE D'C TOMORROW. UNLABORED RESPIRATIONS. NO IV ASSESS. PATIENT TOLERATED TUBE FEEDING WELL. PER NO NEED TO TURN FEEDING TUBE. WCTM
--- NOTE | 2019-12-09 19:40 | NUR ---
ASSUMED CARE. KRIS WAS MORE TALKATIVE TODAY. TALKING ABOUT HER PAST AND THE EVENTS THAT LEAD HER HERE IN THE HOSPTIAL. SHE TALKS ABOUT HOPE IN GETTING BETTER AND DOING MORE THINGS. SHE IS LOOKING FORWARD TO HAVE WEIGHT GAIN, AND KNOWS IT WILL TAKE SOME TIME. WE DISCUSSED DOING HER TUBE FEED TONIGHT AND HAVING HER PERFORM THE ROUTINE. SHE FEELS CONFIDENT IN DOING IT. PAIN AVERAGE 8/10 AT THIS TIME. DRESSING TO PEG TUBE IS CLEAN AND DRY. DENIES ANY NAUSEA. ILLISOTOMY DRESSING STILL INTAKE AND DRAINING BROWN LIQUID. SHE HOPES TO GO HOME TOMORROW. CALL LIGHT IN REACH.
--- NOTE | 2019-12-10 05:17 | NUR ---
SHIFT SUMMARY: KRIS HAD A GOOD NIGHT, INDEPENDENT IN THE ROOM. PAIN BETTER CONTROLED WITH HYDROCODONE. PEG TUBE DRESSING REMAINED C/D/I. SHE CHANGED HER OSTOMY APPLIANCE, BROWN LIQUID STOOL NOTED. SHE WAS ABLE TO ADMINISTER HER OWN BOLUS TUBE FEED LAST NIGHT. 125ML OF ISOSOURCE, WITH 30ML BEFORE AND AFTER FLUSHES. TOLERATED IT WELL. NO NAUSEA NOTED. SAT UP AT 45 DEGREE ANGLE AFTERWARDS. DISCUSSED INSTRUCTIONS ON TUBE FEED. 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 SHE WILL NEED HOME HEALTH FOR FURTHER ASSISTANCE WITH PEG TUBE AND FOR ILLIOSTOMY. SHE REPORTS SOME ISSUES WITH RASH AND SKIN BREAKDOWN. VS WNL FOR PATIENT. WILL REPORT TO DAY SHIFT WHEN THEY ARRIVE. CALL LIGHT IN REACH AND USED APPROPRIATLY.
--- NOTE | 2019-12-10 12:00 | NUR ---
WATCHED PATIENT DO HER OWN TUBE FEEDING. TOLERATED WELL.
[2019-12-10] MEDS ORDERED: MIRT15 PO (13:50)
[2019-12-10] MEDS ORDERED: Hair, Skin & N1 EACH PO (13:51)
[2019-12-10] MEDS ORDERED: Vitamin D2000 UNIT PO (13:52)
[2019-12-10] MEDS ORDERED: OLAN5 PO (13:52)
--- NOTE | 2019-12-10 14:53 | NUR ---
REVIEW D'C. AWARE MEDS AT [facility].REVIEW ALL MEDS. AWARE [facility] WILL CALL AND MAKE F/U APPT. AWARE CAN RETURN TO E.R IF NEEDED. ANSWER ALL QUESTIONS. VERBALIZES UNDERSTANDING. IN W/C TO POV W/RELATIVES
--- NOTE | 2019-12-10 15:26 | NUR ---
REVIEWED TUBE FEEDING. PATIENT VERBALIZES UNDERSTANDING. PATIENT EMPTIES AND CHANGES HER OWN OSTOMY. AWARE HH WILL CALL HER. GIVEN ABOUT 4-5 DAY SUPPLY OF TUBE FEEDING. PATIENT AWARE IF EATS LESS THAN 75 % OF MEAL TO HAVE FULL CARTON AND IF > 75% TO HAVE 1/2 CARTON.
== END 2019-12-10 15:15 | disposition home health service (06) | DRG 641 ==
LOC: ER 17:32 → PCU 22:49 → MEDS 22:49 → PCU 22:50 → MEDS 12-01 15:27
PROVIDERS: Emergency Medicine; Family Medicine; Internal Medicine; Internal Medicine Endocrinology, Diabetes & Metabolism; Nurse Practitioner Acute Care; Student in an Organized Health Care Education/Training Program; ADMIT Internal Medicine
PROC: 0DH63UZ Insertion of Feeding Device into Stomach, Percutaneous Approach (ICD-10-PCS; principal; 2019-12-08)
PROC: BD12ZZZ Fluoroscopy of Stomach (ICD-10-PCS; 2019-12-08)
PROC: 3E0G76Z Introduction of Nutritional Substance into Upper GI, Via Natural or Artificial Opening (ICD-10-PCS; 2019-12-08)
DX: E43 Unspecified severe protein-calorie malnutrition (principal); R64 Cachexia; Z68.1 Body mass index [BMI] 19.9 or less, adult; N17.9 Acute kidney failure, unspecified; E87.1 Hypo-osmolality and hyponatremia; N39.0 Urinary tract infection, site not specified; K50.90 Crohn's disease, unspecified, without complications; E87.2 Acidosis; B37.0 Candidal stomatitis; F31.9 Bipolar disorder, unspecified; J44.9 Chronic obstructive pulmonary disease, unspecified; I10 Essential (primary) hypertension; F20.9 Schizophrenia, unspecified; Z90.49 Acquired absence of other specified parts of digestive tract; E03.9 Hypothyroidism, unspecified; F17.210 Nicotine dependence, cigarettes, uncomplicated; Z93.2 Ileostomy status; E78.5 Hyperlipidemia, unspecified; F43.12 Post-traumatic stress disorder, chronic; R43.0 Anosmia; F50.89 Other specified eating disorder; K21.9 Gastro-esophageal reflux disease without esophagitis; G25.81 Restless legs syndrome; J34.2 Deviated nasal septum; B95.61 Methicillin susceptible Staphylococcus aureus infection as the cause of diseases classified elsewhere
CPT/HCPCS: 36415; 49440; 71045; 76700; 80048; 80053; 80069; 81001; 81003; 82947; 83605; 83735; 84100; 85025; 87040; 87077; 87086; 87186; 94640; 94760; 94762; 97110; 97161; 97165; 97530; 99152; 99153; 99284-25; A9270; A9270-GY; C1751; J0690; J2250; J2405; J3010; J7030; J7040; Q9967

== ENCOUNTER → 2020-01-15 | Outpatient (CLI) | payer OTHER ==
[~2020-01-15] MED LIST changes: +Amitriptyline100 MG; +CLOT10 MT; +HYDROCODONE-AC1 EAC7 PO; +Hair, Skin & N1 EACH PO; +IPRAT-ALBUT 0.5-3 ML INH; +Milk Of Ma400 MG/5 M PO; +NARCAN4 M1 INH; +OLAN5 PO; +ONDA4 PO; +Promethazine12.5 M1 PO; +SPIRIVA RESPIMAT4 G3 INH; +Vitamin D2000 UNIT PO; +ZIPR20 PO; +ZIPRASIDONE HCL20 MG PO
== END | disposition home or self-care (01) ==
LOC: LAB SHORT 16:20 → LAB 16:20
DX: K94.22 Gastrostomy infection (principal)
CPT/HCPCS: 87070; 87077; 87106; 87147; 87186; 87205

== ENCOUNTER 2020-03-28 12:40 | Emergency (ER) | payer OTHER ==
[~2020-03-28] VITALS: Ht 162.6 cm; Wt 38.1 kg
[~2020-03-28 12:40] MED LIST changes: +HUMIRA(CF)40 MG/0.1 INJ; +MORP15ER PO; +PROAIR HFA INH
== END 2020-03-28 16:32 | disposition home or self-care (01) ==
LOC: ER 12:40
DX: K94.23 Gastrostomy malfunction (principal); F31.9 Bipolar disorder, unspecified; J44.9 Chronic obstructive pulmonary disease, unspecified; F20.9 Schizophrenia, unspecified; E03.9 Hypothyroidism, unspecified; F17.200 Nicotine dependence, unspecified, uncomplicated; Z88.8 Allergy status to other drugs, medicaments and biological substances; Z79.899 Other long term (current) drug therapy
CPT/HCPCS: 43762; 99282-25

== ENCOUNTER 2020-03-31 10:51 | Day surgery (SDC) | payer OTHER ==
[~2020-03-31] VITALS: Ht 162.6 cm; Wt 35.0 kg
--- NOTE | 2020-03-31 14:50 | NUR ---
PT BACK TO RECOVERY RM WITH G TUBE PLACEMENT IN PLACE. PT TOLERATED WELL. EATING LUNCH AT THIS TIME. NADN. VSS. PT DENIES PAIN OR NEEDS. PT VERBALIZES UNDERSTANDING WRITTEN AND VERBAL ORDERS. IV DC'D. CATH INTACT. PRESSURE DSG IN PLACE. NO BLEEDING NOTED.
--- NOTE | 2020-03-31 14:57 | NUR ---
PT TO DC TO HOME VIA W/C.
== END 2020-03-31 15:00 | disposition home or self-care (01) ==
LOC: MHTC 10:51
DX: Z43.1 Encounter for attention to gastrostomy (principal); K50.90 Crohn's disease, unspecified, without complications; K21.9 Gastro-esophageal reflux disease without esophagitis; F31.9 Bipolar disorder, unspecified; F60.3 Borderline personality disorder; J44.9 Chronic obstructive pulmonary disease, unspecified; E78.5 Hyperlipidemia, unspecified; F41.9 Anxiety disorder, unspecified; M79.7 Fibromyalgia; F17.210 Nicotine dependence, cigarettes, uncomplicated; E43 Unspecified severe protein-calorie malnutrition; Z68.1 Body mass index [BMI] 19.9 or less, adult; Z88.8 Allergy status to other drugs, medicaments and biological substances; Z79.51 Long term (current) use of inhaled steroids; Z79.899 Other long term (current) drug therapy
CPT/HCPCS: 99152; 99153; C1769; C1887; J2250; J3010; J7040; Q9967

== ENCOUNTER 2020-08-19 07:20 | Day surgery (SDC) | payer OTHER ==
[~2020-08-19] VITALS: Ht 162.6 cm; Wt 43.5 kg
[2020-08-19] MEDS ORDERED: ZOFRAN4 MG PO (07:48)
[2020-08-19] MEDS ORDERED: PROMETHAZINE V473 M2 PO (07:50)
--- NOTE | 2020-08-19 09:50 | NUR ---
PT TOLERATES PO FLUIDS/FOOD WITH NO DIFFICULTIES. ATE 100 % OF MEAL. G TUBE EXCHANGE SITE APPEARS TO BE WNL, NO BLEEDING OR OOZING. STOMA SITE APPEARS RED, NO SWELLING. PT DENIES PAIN. GETS DRESSED WITH NO NEEDED ASSISTANCE. TRANSPORT CALLED TO SCHEDULE RIDE HOME. PT AMBULATES TO RESTROOM WITH STEADY GAIT, UNMEASURED VOID.
--- NOTE | 2020-08-19 10:04 | NUR ---
PATIENT VERBALIZED UNDERSTANDING OF DISCHARGE INSTRUCTIONS AND PRECAUTIONS. SITE CLEAR. DENIES PAIN. PATIENT AMBULATED TO MAIN ENTRANCE WITHOUT DIFFICULTY.
== END 2020-08-19 10:05 | disposition home or self-care (01) ==
LOC: MHTC 07:20
DX: K31.84 Gastroparesis (principal); R09.89 Other specified symptoms and signs involving the circulatory and respiratory systems; F31.9 Bipolar disorder, unspecified; J44.9 Chronic obstructive pulmonary disease, unspecified; K21.9 Gastro-esophageal reflux disease without esophagitis; E78.5 Hyperlipidemia, unspecified; Z88.8 Allergy status to other drugs, medicaments and biological substances; Z79.899 Other long term (current) drug therapy; Z20.822 Contact with and (suspected) exposure to COVID-19
CPT/HCPCS: 99152; 99153; C1769; J2250; J3010; J7030; Q9967

== ENCOUNTER 2021-08-13 12:38 | Inpatient (IN) | payer OTHER ==
[~2021-08-13] VITALS: Ht 162.6 cm; Wt 40.4 kg
[~2021-08-13 12:38] MED LIST changes: +OLAN20 MM; -OLAN5 PO; +ONDA4ODT MM; +PROMETHAZINE V473 M2 PO
[2021-08-13 13:17] LABS: Base Excess Venous -20.6 mmol/L; Bicarbonate Venous 11.6 mmol/L (24.0-30.0); PCO2 Venous 16.9 mmHg (38-42); pH Blood Venous 7.23 (7.34-7.37)
[2021-08-13 13:59] LABS: International Normalized Ratio 1.04; Prothrombin Time Results 10.9 Sec (9.7-11.5)
[2021-08-13 14:20] LABS: Magnesium, Blood 2.3 mg/dL (1.6-2.4)
[2021-08-13 14:21] LABS: Albumin, Blood 2.1 g/dL (3.4-5.0); Albumin/Globulin Ratio 0.5 (0.8-1.8); Bilirubin, Direct 0.2 mg/dL (0.0-0.3); Bilirubin, Indirect 0.2 mg/dL (0.1-0.7); Bilirubin, Total 0.4 mg/dL (0.1-1.0); Bun/Creatinine Ratio 41.1 (12.0-20.0); Calcium, Blood 7.8 mg/dL (8.5-10.1); Creatinine, Blood 1.85 mg/dL (0.40-1.00); Globulin, Blood 3.9 g/dL (2.2-4.0); Phosphorus, Blood 6.7 mg/dL (2.5-4.9); Potassium, Blood 4.8 mmol/L (3.5-5.5)
[2021-08-13 14:27] LABS: Beta-hydroxybutyrate 2.9 mg/dL (0.2-2.8)
[2021-08-13 15:09] LABS: BASOPHILS ABSOLUTE AUTO 0.16 K/mm3 (0.00-0.23); BASOPHILS PERCENT AUTO 0 % (0-2); EOSINOPHILS ABSOLUTE AUTO 0.11 K/mm3 (0.00-0.68); EOSINOPHILS PERCENT AUTO 0 % (0-6); Hematocrit 41.7 % (33.0-51.0); Hemoglobin 13.6 g/dL (11.5-16.0); IMMATURE GRAN PERCENT AUTO 2 % (0-1); LYMPHOCYTES ABSOLUTE AUTO 1.88 K/mm3 (0.84-5.20); LYMPHOCYTES PERCENT AUTO 4 % (21-46); MONOCYTES ABSOLUTE AUTO 1.31 K/mm3 (0.16-1.47); MONOCYTES PERCENT AUTO 3 % (4-13); Mean Corpuscular HGB 31.1 pg (26.0-34.0); Mean Corpuscular HGB Conc 32.6 g/dL (31.5-36.5); Mean Corpuscular Volume 95 fL (80-100); Mean Platelet Volume 9.5 fL (9.1-12.4); NEUTROPHILS ABSOLUTE AUTO 39.35 K/mm3 (1.96-9.15); NEUTROPHILS PERCENT AUTO 90 % (41-73); Platelet Count 652 K/mm3 (150-400); RDW Coefficient Variation 14.9 % (11.7-14.2); RDW Standard Deviation 51.5 fL (35.1-46.3); Red Blood Cell Count 4.38 M/mm3 (3.80-5.20); White Blood Cell Count 43.61 K/mm3 (4.00-11.30)
[2021-08-13 15:30] LABS: Source, Urine Clean Catch
[2021-08-13 15:39] LABS: Appearance, Urine Clear (Clear); Blood, Urine Neg (Neg); Glucose Qualitative, Urine Neg (Neg); Ketones, Urine Neg (Neg); Leukocyte Esterase, Urine 2+ (Neg); Nitrite, Urine Neg (Neg); Protein, Urine 2+ (Neg); Urobilinogen, Urine NORM (Normal)
[2021-08-13 16:36] LABS: Bilirubin, Urine 1+ (Neg); Color, Urine Amber (P-Yellow)
[2021-08-13 16:47] LABS: Red Blood Cells, Urine 0-2 /hpf (0-2); Squamous Epithelial Cells Few /hpf (Few)
[2021-08-13 16:48] LABS: Bacteria Mod /hpf; Hyaline Casts 0-2 /lpf (0-2)
[2021-08-13 17:21] LABS: Influenza A, PCR NEGATIVE (NEGATIVE); Influenza B, PCR NEGATIVE (NEGATIVE); Resp Syncytial Virus, PCR NEGATIVE (NEGATIVE); SARS-Cov-2 (COVID-19) PCR, MMC NEGATIVE (NEGATIVE)
[2021-08-13] MEDS ORDERED: Mirtazapine45 M1 PO (19:27)
[2021-08-13] MEDS ORDERED: PRAMIPEXOLE D0.25 M1 PO (19:30)
[2021-08-13] MEDS ORDERED: SPIRIVA RESPIMAT4 G3 INH (19:30)
[2021-08-13] MEDS ORDERED: HYDROCODONE-AC1 EA17 PO (19:32)
[2021-08-14 05:33] LABS: BAND PERCENT MAN 15 % (0-8); BASOPHILS PERCENT MAN 0 % (0-2); EOSINOPHILS PERCENT MAN 0 % (0-6); LYMPHOCYTES PERCENT MAN 3 % (21-46); MONOCYTES PERCENT MAN 2 % (4-13); SEG NEUTROPHILS PERCENT MAN 80 % (41-73); TOTAL CELLS COUNTED 100
[2021-08-14 05:44] LABS: Anion Gap 21 mmol/L (6-16); Blood Urea Nitrogen 53 mg/dL (8-24); Bun/Creatinine Ratio 54.6 (12.0-20.0); CO2, Blood 11 mmol/L (21-32); Calcium, Blood 6.9 mg/dL (8.5-10.1); Chloride, Blood 106 mmol/L (98-108); Creatinine, Blood 0.97 mg/dL (0.40-1.00); Glomerular Filtration Rate 59 (60-); Glucose, Blood 94 mg/dL (70-99); Magnesium, Blood 1.8 mg/dL (1.6-2.4); Sodium, Blood 138 mmol/L (136-145); Vancomycin, Random 5.7 ug/mL
[2021-08-14 06:41] LABS: Hematocrit 33.7 % (33.0-51.0); Hemoglobin 11.7 g/dL (11.5-16.0); LYMPHOCYTES ABSOLUTE MAN 1.13 K/mm3 (0.84-5.20); MONOCYTES ABSOLUTE MAN 0.75 K/mm3 (0.16-1.47); Mean Corpuscular HGB 30.5 pg (26.0-34.0); Mean Corpuscular HGB Conc 34.7 g/dL (31.5-36.5); Mean Platelet Volume 9.1 fL (9.1-12.4); NEUTROPHILS ABSOLUTE MAN 35.94 K/mm3 (1.96-9.15); Platelet Count 586 K/mm3 (150-400); RDW Coefficient Variation 14.4 % (11.7-14.2); RDW Standard Deviation 45.4 fL (35.1-46.3); Red Blood Cell Count 3.84 M/mm3 (3.80-5.20); White Blood Cell Count 37.84 K/mm3 (4.00-11.30)
[2021-08-14 06:42] LABS: Mean Corpuscular Volume 88 fL (80-100)
[2021-08-15 05:23] LABS: Vancomycin, Random 8.9 ug/mL
[2021-08-16 09:11] LABS: Vancomycin, Trough 9.9 ug/mL (5.0-10.0)
[2021-08-16 09:28] LABS: BASOPHILS ABSOLUTE AUTO 0.04 K/mm3 (0.00-0.23); BASOPHILS PERCENT AUTO 0 % (0-2); EOSINOPHILS ABSOLUTE AUTO 0.23 K/mm3 (0.00-0.68); EOSINOPHILS PERCENT AUTO 1 % (0-6); Hematocrit 27.9 % (33.0-51.0); Hemoglobin 9.5 g/dL (11.5-16.0); IMMATURE GRAN ABSOLUTE AUTO 0.22 K/mm3 (0.00-0.10); IMMATURE GRAN PERCENT AUTO 1 % (0-1); LYMPHOCYTES ABSOLUTE AUTO 1.26 K/mm3 (0.84-5.20); LYMPHOCYTES PERCENT AUTO 7 % (21-46); MONOCYTES ABSOLUTE AUTO 0.48 K/mm3 (0.16-1.47); MONOCYTES PERCENT AUTO 3 % (4-13); Mean Corpuscular HGB 30.3 pg (26.0-34.0); Mean Corpuscular HGB Conc 34.1 g/dL (31.5-36.5); Mean Corpuscular Volume 89 fL (80-100); Mean Platelet Volume 9.8 fL (9.1-12.4); NEUTROPHILS ABSOLUTE AUTO 16.14 K/mm3 (1.96-9.15); NEUTROPHILS PERCENT AUTO 88 % (41-73); Platelet Count 337 K/mm3 (150-400); RDW Coefficient Variation 14.7 % (11.7-14.2); RDW Standard Deviation 47.5 fL (35.1-46.3); Red Blood Cell Count 3.14 M/mm3 (3.80-5.20); White Blood Cell Count 18.37 K/mm3 (4.00-11.30)
[2021-08-16 09:37] LABS: Anion Gap 8 mmol/L (6-16); Blood Urea Nitrogen 13 mg/dL (8-24); Bun/Creatinine Ratio 31.6 (12.0-20.0); CO2, Blood 19 mmol/L (21-32); Calcium, Blood 7.3 mg/dL (8.5-10.1); Chloride, Blood 113 mmol/L (98-108); Creatinine, Blood 0.41 mg/dL (0.40-1.00); Glomerular Filtration Rate >60 (60-); Glucose, Blood 106 mg/dL (70-99); Potassium, Blood 2.6 mmol/L (3.5-5.5); Sodium, Blood 140 mmol/L (136-145)
[2021-08-17 09:53] LABS: BASOPHILS ABSOLUTE AUTO 0.02 K/mm3 (0.00-0.23); BASOPHILS PERCENT AUTO 0 % (0-2); EOSINOPHILS PERCENT AUTO 0 % (0-6); Hematocrit 25.8 % (33.0-51.0); Hemoglobin 9.2 g/dL (11.5-16.0); IMMATURE GRAN ABSOLUTE AUTO 0.23 K/mm3 (0.00-0.10); IMMATURE GRAN PERCENT AUTO 1 % (0-1); LYMPHOCYTES ABSOLUTE AUTO 0.68 K/mm3 (0.84-5.20); LYMPHOCYTES PERCENT AUTO 3 % (21-46); MONOCYTES ABSOLUTE AUTO 0.48 K/mm3 (0.16-1.47); MONOCYTES PERCENT AUTO 2 % (4-13); Mean Corpuscular HGB 30.7 pg (26.0-34.0); Mean Corpuscular HGB Conc 35.7 g/dL (31.5-36.5); Mean Corpuscular Volume 86 fL (80-100); NEUTROPHILS PERCENT AUTO 93 % (41-73); Platelet Count 210 K/mm3 (150-400); RDW Coefficient Variation 14.6 % (11.7-14.2); RDW Standard Deviation 46.1 fL (35.1-46.3); White Blood Cell Count 20.91 K/mm3 (4.00-11.30)
[2021-08-17 09:58] LABS: Anion Gap 11 mmol/L (6-16); Blood Urea Nitrogen 12 mg/dL (8-24); Bun/Creatinine Ratio 34.1 (12.0-20.0); CO2, Blood 23 mmol/L (21-32); Calcium, Blood 7.3 mg/dL (8.5-10.1); Chloride, Blood 103 mmol/L (98-108); Creatinine, Blood 0.35 mg/dL (0.40-1.00); Glomerular Filtration Rate >60 (60-); Glucose, Blood 204 mg/dL (70-99); Sodium, Blood 137 mmol/L (136-145)
[2021-08-17 10:01] LABS: Potassium, Blood 2.2 mmol/L (3.5-5.5)
[2021-08-17 21:48] LABS: Vancomycin, Trough 22.4 ug/mL (5.0-10.0)
[2021-08-18 09:32] LABS: Hematocrit 26.2 % (33.0-51.0); Hemoglobin 9.3 g/dL (11.5-16.0); Mean Corpuscular HGB 30.7 pg (26.0-34.0); Mean Corpuscular HGB Conc 35.5 g/dL (31.5-36.5); Mean Corpuscular Volume 87 fL (80-100); Mean Platelet Volume 10.2 fL (9.1-12.4); NRBC ABSOLUTE 0.05 K/mm3 (0.00-0.02); NRBC Auto 0.2 /100 WBC (0.0-0.2); Platelet Count 225 K/mm3 (150-400); RDW Standard Deviation 46.8 fL (35.1-46.3); Red Blood Cell Count 3.03 M/mm3 (3.80-5.20)
[2021-08-18 09:54] LABS: Anion Gap 9 mmol/L (6-16); Blood Urea Nitrogen 16 mg/dL (8-24); CO2, Blood 23 mmol/L (21-32); Calcium, Blood 7.3 mg/dL (8.5-10.1); Chloride, Blood 107 mmol/L (98-108); Glomerular Filtration Rate >60 (60-); Glucose, Blood 162 mg/dL (70-99); Potassium, Blood 4.4 mmol/L (3.5-5.5); Sodium, Blood 139 mmol/L (136-145)
[2021-08-18 10:16] LABS: BAND PERCENT MAN 1 % (0-8); BASOPHILS PERCENT MAN 0 % (0-2); EOSINOPHILS PERCENT MAN 0 % (0-6); LYMPHOCYTES ABSOLUTE MAN 0.31 K/mm3 (0.84-5.20); LYMPHOCYTES PERCENT MAN 1 % (21-46); MONOCYTES PERCENT MAN 0 % (4-13); NEUTROPHILS ABSOLUTE MAN 30.69 K/mm3 (1.96-9.15); SEG NEUTROPHILS PERCENT MAN 98 % (41-73); TOTAL CELLS COUNTED 100
[2021-08-19 04:45] LABS: Hematocrit 24.3 % (33.0-51.0); Hemoglobin 8.5 g/dL (11.5-16.0); Mean Corpuscular HGB 30.5 pg (26.0-34.0); Mean Corpuscular Volume 87 fL (80-100); NRBC ABSOLUTE 0.23 K/mm3 (0.00-0.02); NRBC Auto 0.9 /100 WBC (0.0-0.2); Platelet Count 229 K/mm3 (150-400); RDW Coefficient Variation 15.2 % (11.7-14.2); RDW Standard Deviation 47.4 fL (35.1-46.3); Red Blood Cell Count 2.79 M/mm3 (3.80-5.20); White Blood Cell Count 25.56 K/mm3 (4.00-11.30)
[2021-08-19 05:15] LABS: Anion Gap 6 mmol/L (6-16); Blood Urea Nitrogen 22 mg/dL (8-24); Bun/Creatinine Ratio 48.4 (12.0-20.0); CO2, Blood 27 mmol/L (21-32); Calcium, Blood 7.3 mg/dL (8.5-10.1); Chloride, Blood 103 mmol/L (98-108); Creatinine, Blood 0.46 mg/dL (0.40-1.00); Glomerular Filtration Rate >60 (60-); Glucose, Blood 127 mg/dL (70-99); Potassium, Blood 5.1 mmol/L (3.5-5.5); Sodium, Blood 136 mmol/L (136-145)
[2021-08-19 06:01] LABS: BAND PERCENT MAN 4 % (0-8); BASOPHILS PERCENT MAN 0 % (0-2); EOSINOPHILS PERCENT MAN 0 % (0-6); LYMPHOCYTES ABSOLUTE MAN 0.51 K/mm3 (0.84-5.20); LYMPHOCYTES PERCENT MAN 2 % (21-46); MONOCYTES ABSOLUTE MAN 1.02 K/mm3 (0.16-1.47); MONOCYTES PERCENT MAN 4 % (4-13); MYELOCYTE ABSOLUTE MAN 0.51 K/mm3 (0.00-0.00); MYELOCYTE PERCENT MAN 2 % (0-0); NEUTROPHILS ABSOLUTE MAN 23.51 K/mm3 (1.96-9.15); SEG NEUTROPHILS PERCENT MAN 88 % (41-73); TOTAL CELLS COUNTED 100
[2021-08-19 09:08] LABS: Hematocrit 25.7 % (33.0-51.0); Hemoglobin 8.7 g/dL (11.5-16.0); Mean Corpuscular HGB 29.8 pg (26.0-34.0); Mean Corpuscular HGB Conc 33.9 g/dL (31.5-36.5); Mean Corpuscular Volume 88 fL (80-100); Mean Platelet Volume 10.1 fL (9.1-12.4); NRBC ABSOLUTE 0.19 K/mm3 (0.00-0.02); NRBC Auto 0.7 /100 WBC (0.0-0.2); Platelet Count 242 K/mm3 (150-400); RDW Coefficient Variation 15.1 % (11.7-14.2); RDW Standard Deviation 47.4 fL (35.1-46.3); Red Blood Cell Count 2.92 M/mm3 (3.80-5.20); White Blood Cell Count 25.35 K/mm3 (4.00-11.30)
[2021-08-19 09:18] LABS: Anion Gap 6 mmol/L (6-16); Blood Urea Nitrogen 21 mg/dL (8-24); Bun/Creatinine Ratio 44.9 (12.0-20.0); CO2, Blood 28 mmol/L (21-32); Calcium, Blood 7.3 mg/dL (8.5-10.1); Chloride, Blood 102 mmol/L (98-108); Creatinine, Blood 0.47 mg/dL (0.40-1.00); Glomerular Filtration Rate >60 (60-); Glucose, Blood 129 mg/dL (70-99); Potassium, Blood 4.9 mmol/L (3.5-5.5); Sodium, Blood 136 mmol/L (136-145); Vancomycin, Random 14.4 ug/mL
[2021-08-19 09:37] LABS: BAND PERCENT MAN 1 % (0-8); BASOPHILS PERCENT MAN 0 % (0-2); EOSINOPHILS PERCENT MAN 0 % (0-6); LYMPHOCYTES ABSOLUTE MAN 1.26 K/mm3 (0.84-5.20); LYMPHOCYTES PERCENT MAN 5 % (21-46); MONOCYTES ABSOLUTE MAN 1.52 K/mm3 (0.16-1.47); MONOCYTES PERCENT MAN 6 % (4-13); NEUTROPHILS ABSOLUTE MAN 22.56 K/mm3 (1.96-9.15); SEG NEUTROPHILS PERCENT MAN 88 % (41-73); TOTAL CELLS COUNTED 100
[2021-08-20 03:48] LABS: Hemoglobin 8.7 g/dL (11.5-16.0); Mean Corpuscular HGB 30.7 pg (26.0-34.0); Mean Corpuscular HGB Conc 34.8 g/dL (31.5-36.5); Mean Corpuscular Volume 88 fL (80-100); Mean Platelet Volume 9.9 fL (9.1-12.4); NRBC Auto 1.3 /100 WBC (0.0-0.2); Platelet Count 267 K/mm3 (150-400); RDW Coefficient Variation 15.4 % (11.7-14.2); RDW Standard Deviation 48.2 fL (35.1-46.3); Red Blood Cell Count 2.83 M/mm3 (3.80-5.20); White Blood Cell Count 23.37 K/mm3 (4.00-11.30)
[2021-08-20 04:09] LABS: Anion Gap 6 mmol/L (6-16); Blood Urea Nitrogen 25 mg/dL (8-24); Bun/Creatinine Ratio 61.9 (12.0-20.0); CO2, Blood 29 mmol/L (21-32); Calcium, Blood 7.1 mg/dL (8.5-10.1); Chloride, Blood 100 mmol/L (98-108); Glomerular Filtration Rate >60 (60-); Glucose, Blood 105 mg/dL (70-99); Potassium, Blood 4.7 mmol/L (3.5-5.5); Sodium, Blood 135 mmol/L (136-145)
[2021-08-20 04:21] LABS: BAND PERCENT MAN 4 % (0-8); BASOPHILS PERCENT MAN 0 % (0-2); EOSINOPHILS PERCENT MAN 0 % (0-6); LYMPHOCYTES ABSOLUTE MAN 0.93 K/mm3 (0.84-5.20); LYMPHOCYTES PERCENT MAN 4 % (21-46); MONOCYTES ABSOLUTE MAN 0.46 K/mm3 (0.16-1.47); MONOCYTES PERCENT MAN 2 % (4-13); NEUTROPHILS ABSOLUTE MAN 21.96 K/mm3 (1.96-9.15); SEG NEUTROPHILS PERCENT MAN 90 % (41-73); TOTAL CELLS COUNTED 100
[2021-08-22 05:28] LABS: BASOPHILS ABSOLUTE AUTO 0.08 K/mm3 (0.00-0.23); BASOPHILS PERCENT AUTO 0 % (0-2); EOSINOPHILS ABSOLUTE AUTO 0.02 K/mm3 (0.00-0.68); EOSINOPHILS PERCENT AUTO 0 % (0-6); Hematocrit 30.5 % (33.0-51.0); Hemoglobin 10.4 g/dL (11.5-16.0); IMMATURE GRAN ABSOLUTE AUTO 1.13 K/mm3 (0.00-0.10); IMMATURE GRAN PERCENT AUTO 6 % (0-1); LYMPHOCYTES ABSOLUTE AUTO 1.85 K/mm3 (0.84-5.20); LYMPHOCYTES PERCENT AUTO 9 % (21-46); MONOCYTES ABSOLUTE AUTO 0.59 K/mm3 (0.16-1.47); MONOCYTES PERCENT AUTO 3 % (4-13); Mean Corpuscular HGB 30.3 pg (26.0-34.0); Mean Corpuscular HGB Conc 34.1 g/dL (31.5-36.5); Mean Corpuscular Volume 89 fL (80-100); NEUTROPHILS ABSOLUTE AUTO 16.97 K/mm3 (1.96-9.15); NEUTROPHILS PERCENT AUTO 82 % (41-73); NRBC ABSOLUTE 0.23 K/mm3 (0.00-0.02); NRBC Auto 1.1 /100 WBC (0.0-0.2); RDW Standard Deviation 49.1 fL (35.1-46.3); Red Blood Cell Count 3.43 M/mm3 (3.80-5.20); White Blood Cell Count 20.64 K/mm3 (4.00-11.30)
[2021-08-22 05:41] LABS: Anion Gap 3 mmol/L (6-16); Blood Urea Nitrogen 17 mg/dL (8-24); Bun/Creatinine Ratio 45.9 (12.0-20.0); CO2, Blood 27 mmol/L (21-32); Calcium, Blood 7.8 mg/dL (8.5-10.1); Chloride, Blood 105 mmol/L (98-108); Creatinine, Blood 0.37 mg/dL (0.40-1.00); Glomerular Filtration Rate >60 (60-); Glucose, Blood 90 mg/dL (70-99); Potassium, Blood 5.1 mmol/L (3.5-5.5); Sodium, Blood 135 mmol/L (136-145)
[2021-08-22 05:58] LABS: Mean Platelet Volume 9.9 fL (9.1-12.4); Platelet Count 377 K/mm3 (150-400)
[2021-08-23 04:55] LABS: BASOPHILS ABSOLUTE AUTO 0.04 K/mm3 (0.00-0.23); BASOPHILS PERCENT AUTO 0 % (0-2); EOSINOPHILS ABSOLUTE AUTO 0.01 K/mm3 (0.00-0.68); EOSINOPHILS PERCENT AUTO 0 % (0-6); Hemoglobin 10.4 g/dL (11.5-16.0); IMMATURE GRAN ABSOLUTE AUTO 0.71 K/mm3 (0.00-0.10); IMMATURE GRAN PERCENT AUTO 3 % (0-1); LYMPHOCYTES ABSOLUTE AUTO 1.34 K/mm3 (0.84-5.20); LYMPHOCYTES PERCENT AUTO 6 % (21-46); MONOCYTES ABSOLUTE AUTO 0.46 K/mm3 (0.16-1.47); MONOCYTES PERCENT AUTO 2 % (4-13); Mean Corpuscular HGB 30.1 pg (26.0-34.0); Mean Corpuscular HGB Conc 33.5 g/dL (31.5-36.5); Mean Corpuscular Volume 90 fL (80-100); NEUTROPHILS ABSOLUTE AUTO 20.46 K/mm3 (1.96-9.15); NEUTROPHILS PERCENT AUTO 89 % (41-73); NRBC ABSOLUTE 0.08 K/mm3 (0.00-0.02); NRBC Auto 0.3 /100 WBC (0.0-0.2); RDW Coefficient Variation 16.3 % (11.7-14.2); RDW Standard Deviation 48.3 fL (35.1-46.3); Red Blood Cell Count 3.46 M/mm3 (3.80-5.20); White Blood Cell Count 23.02 K/mm3 (4.00-11.30)
[2021-08-23 04:57] LABS: Mean Platelet Volume 10.2 fL (9.1-12.4); Platelet Count 434 K/mm3 (150-400)
[2021-08-23 06:03] LABS: Magnesium, Blood 2.5 mg/dL (1.6-2.4)
[2021-08-23 06:10] LABS: Albumin, Blood 2.3 g/dL (3.4-5.0); Anion Gap 4 mmol/L (6-16); Blood Urea Nitrogen 27 mg/dL (8-24); Bun/Creatinine Ratio 50.9 (12.0-20.0); CO2, Blood 26 mmol/L (21-32); Calcium, Blood 8.4 mg/dL (8.5-10.1); Chloride, Blood 108 mmol/L (98-108); Creatinine, Blood 0.53 mg/dL (0.40-1.00); Glomerular Filtration Rate >60 (60-); Glucose, Blood 101 mg/dL (70-99); Phosphorus, Blood 2.1 mg/dL (2.5-4.9); Sodium, Blood 138 mmol/L (136-145)
[2021-08-23 06:11] LABS: Potassium, Blood 7.2 mmol/L (3.5-5.5)
[2021-08-23 07:05] LABS: Anion Gap 3 mmol/L (6-16); Blood Urea Nitrogen 26 mg/dL (8-24); Bun/Creatinine Ratio 46.8 (12.0-20.0); CO2, Blood 26 mmol/L (21-32); Calcium, Blood 8.3 mg/dL (8.5-10.1); Chloride, Blood 108 mmol/L (98-108); Creatinine, Blood 0.56 mg/dL (0.40-1.00); Glomerular Filtration Rate >60 (60-); Glucose, Blood 102 mg/dL (70-99); Potassium, Blood 7.3 mmol/L (3.5-5.5); Sodium, Blood 137 mmol/L (136-145)
[2021-08-23 09:47] LABS: Influenza A, PCR NEGATIVE (NEGATIVE); Influenza B, PCR NEGATIVE (NEGATIVE); Resp Syncytial Virus, PCR NEGATIVE (NEGATIVE)
[2021-08-23 09:59] LABS: SARS-Cov-2 (COVID-19) PCR, MMC POSITIVE (NEGATIVE)
[2021-08-23 11:49] LABS: Anion Gap 9 mmol/L (6-16); Blood Urea Nitrogen 29 mg/dL (8-24); Bun/Creatinine Ratio 42.6 (12.0-20.0); CO2, Blood 20 mmol/L (21-32); Calcium, Blood 9.8 mg/dL (8.5-10.1); Chloride, Blood 107 mmol/L (98-108); Creatinine, Blood 0.68 mg/dL (0.40-1.00); Glomerular Filtration Rate >60 (60-); Glucose, Blood 121 mg/dL (70-99); Potassium, Blood 5.8 mmol/L (3.5-5.5); Sodium, Blood 136 mmol/L (136-145)
[2021-08-23 21:53] LABS: Albumin, Blood 2.5 g/dL (3.4-5.0); Albumin/Globulin Ratio 0.6 (0.8-1.8); Bilirubin, Total 0.4 mg/dL (0.1-1.0); Bun/Creatinine Ratio 40.9 (12.0-20.0); Calcium, Blood 9.5 mg/dL (8.5-10.1); Creatinine, Blood 1.1 mg/dL (0.40-1.00); Globulin, Blood 4.4 g/dL (2.2-4.0); Potassium, Blood 7.4 mmol/L (3.5-5.5); Total Protein, Blood 6.9 g/dL (6.4-8.2)
[2021-08-23 22:36] LABS: BASOPHILS ABSOLUTE AUTO 0.12 K/mm3 (0.00-0.23); BASOPHILS PERCENT AUTO 0 % (0-2); EOSINOPHILS PERCENT AUTO 0 % (0-6); Hematocrit 34.1 % (33.0-51.0); Hemoglobin 11.7 g/dL (11.5-16.0); IMMATURE GRAN ABSOLUTE AUTO 1.22 K/mm3 (0.00-0.10); IMMATURE GRAN PERCENT AUTO 3 % (0-1); LYMPHOCYTES ABSOLUTE AUTO 1.33 K/mm3 (0.84-5.20); LYMPHOCYTES PERCENT AUTO 3 % (21-46); MONOCYTES ABSOLUTE AUTO 1.16 K/mm3 (0.16-1.47); MONOCYTES PERCENT AUTO 3 % (4-13); Mean Corpuscular HGB 30.3 pg (26.0-34.0); Mean Corpuscular HGB Conc 34.3 g/dL (31.5-36.5); Mean Corpuscular Volume 88 fL (80-100); Mean Platelet Volume 9.6 fL (9.1-12.4); NEUTROPHILS ABSOLUTE AUTO 39.14 K/mm3 (1.96-9.15); NEUTROPHILS PERCENT AUTO 91 % (41-73); NRBC ABSOLUTE 0.06 K/mm3 (0.00-0.02); NRBC Auto 0.1 /100 WBC (0.0-0.2); Platelet Count 495 K/mm3 (150-400); RDW Coefficient Variation 15.9 % (11.7-14.2); RDW Standard Deviation 46.9 fL (35.1-46.3); Red Blood Cell Count 3.86 M/mm3 (3.80-5.20); White Blood Cell Count 42.97 K/mm3 (4.00-11.30)
[2021-08-24 04:39] LABS: EOSINOPHILS ABSOLUTE AUTO 0.12 K/mm3 (0.00-0.68); EOSINOPHILS PERCENT AUTO 0 % (0-6); Hematocrit 34.4 % (33.0-51.0); IMMATURE GRAN ABSOLUTE AUTO 0.94 K/mm3 (0.00-0.10); IMMATURE GRAN PERCENT AUTO 2 % (0-1); LYMPHOCYTES ABSOLUTE AUTO 1.23 K/mm3 (0.84-5.20); LYMPHOCYTES PERCENT AUTO 3 % (21-46); MONOCYTES ABSOLUTE AUTO 1.02 K/mm3 (0.16-1.47); MONOCYTES PERCENT AUTO 3 % (4-13); Mean Corpuscular HGB 30.5 pg (26.0-34.0); Mean Corpuscular HGB Conc 34.9 g/dL (31.5-36.5); Mean Corpuscular Volume 88 fL (80-100); Mean Platelet Volume 9.6 fL (9.1-12.4); NEUTROPHILS PERCENT AUTO 92 % (41-73); NRBC ABSOLUTE 0.07 K/mm3 (0.00-0.02); NRBC Auto 0.2 /100 WBC (0.0-0.2); Platelet Count 465 K/mm3 (150-400); RDW Coefficient Variation 15.6 % (11.7-14.2); RDW Standard Deviation 47.1 fL (35.1-46.3); Red Blood Cell Count 3.93 M/mm3 (3.80-5.20); White Blood Cell Count 39.53 K/mm3 (4.00-11.30)
[2021-08-24 04:51] LABS: BASOPHILS ABSOLUTE AUTO 0.02 K/mm3 (0.00-0.23); BASOPHILS PERCENT AUTO 0 % (0-2)
[2021-08-24 05:31] LABS: Albumin, Blood 2.4 g/dL (3.4-5.0); Albumin/Globulin Ratio 0.6 (0.8-1.8); Bilirubin, Total 0.5 mg/dL (0.1-1.0); Calcium, Blood 8.6 mg/dL (8.5-10.1); Creatinine, Blood 1.42 mg/dL (0.40-1.00); Globulin, Blood 4.2 g/dL (2.2-4.0); Total Protein, Blood 6.6 g/dL (6.4-8.2)
[2021-08-24 05:37] LABS: Phosphorus, Blood 5.1 mg/dL (2.5-4.9); Potassium, Blood 6.2 mmol/L (3.5-5.5)
[2021-08-24 10:14] LABS: Bun/Creatinine Ratio 37.7 (12.0-20.0); Calcium, Blood 6.8 mg/dL (8.5-10.1); Creatinine, Blood 1.3 mg/dL (0.40-1.00)
[2021-08-24 14:26] LABS: PCO2 Arterial 50.8 mmHg (35-45); PO2 Arterial 62.8 mmHg (80-100); pH Blood Arterial 7.15 (7.35-7.45)
[2021-08-24 15:17] LABS: Hematocrit 34.9 % (33.0-51.0); Hemoglobin 11.3 g/dL (11.5-16.0); Mean Corpuscular HGB Conc 32.4 g/dL (31.5-36.5); Mean Platelet Volume 10.2 fL (9.1-12.4); NRBC ABSOLUTE 0.04 K/mm3 (0.00-0.02); NRBC Auto 0.1 /100 WBC (0.0-0.2); Platelet Count 443 K/mm3 (150-400); RDW Coefficient Variation 15.7 % (11.7-14.2); RDW Standard Deviation 50.7 fL (35.1-46.3); Red Blood Cell Count 3.77 M/mm3 (3.80-5.20); White Blood Cell Count 39.18 K/mm3 (4.00-11.30)
[2021-08-24 15:32] LABS: Mean Corpuscular Volume 93 fL (80-100)
[2021-08-24 15:41] LABS: Albumin, Blood 2.3 g/dL (3.4-5.0); Albumin/Globulin Ratio 0.6 (0.8-1.8); Bilirubin, Total 0.3 mg/dL (0.1-1.0); Bun/Creatinine Ratio 39.1 (12.0-20.0); Calcium, Blood 7.9 mg/dL (8.5-10.1); Creatinine, Blood 1.56 mg/dL (0.40-1.00); Potassium, Blood 5.7 mmol/L (3.5-5.5); Total Protein, Blood 6.3 g/dL (6.4-8.2)
[2021-08-24 15:56] LABS: BAND PERCENT MAN 24 % (0-8); BASOPHILS PERCENT MAN 0 % (0-2); EOSINOPHILS PERCENT MAN 0 % (0-6); LYMPHOCYTES ABSOLUTE MAN 0.78 K/mm3 (0.84-5.20); LYMPHOCYTES PERCENT MAN 2 % (21-46); MONOCYTES ABSOLUTE MAN 0.78 K/mm3 (0.16-1.47); MONOCYTES PERCENT MAN 2 % (4-13); NEUTROPHILS ABSOLUTE MAN 37.61 K/mm3 (1.96-9.15); SEG NEUTROPHILS PERCENT MAN 72 % (41-73); TOTAL CELLS COUNTED 100
[2021-08-24 16:23] LABS: Source, Urine Foley catheter
[2021-08-24 17:34] LABS: Appearance, Urine Hazy (Clear); Bilirubin, Urine Neg (Neg); Blood, Urine 1+ (Neg); Color, Urine Yellow (P-Yellow); Glucose Qualitative, Urine Neg (Neg); Ketones, Urine Neg (Neg); Leukocyte Esterase, Urine Neg (Neg); Nitrite, Urine Neg (Neg); Protein, Urine 2+ (Neg); Specific Gravity, Urine 1.015 (1.003-1.022); Urobilinogen, Urine NORM (Normal)
[2021-08-24 18:35] LABS: Base Excess Venous -8.1 mmol/L; Bicarbonate Venous 17.8 mmol/L (24.0-30.0); PCO2 Venous 46.2 mmHg (38-42); PO2 Venous 51.7 mmHg (38-42); pH Blood Venous 7.23 (7.34-7.37)
[2021-08-24 18:46] LABS: Mucus Light (0-Heavy)
[2021-08-24 19:00] LABS: Amorphous Light (0-Heavy); Bacteria Many /hpf; Calcium Oxalate Crystals Few /hpf; Squamous Epithelial Cells Rare /hpf (Few); White Blood Cells, Urine 0-2 /hpf (0-5)
[2021-08-24 20:32] LABS: Adenovirus F 40/41 Not Detected (NOT DETECT); Astrovirus Not Detected (NOT DETECT); Campylobacter Sp Not Detected (NOT DETECT); Cryptosporidium Not Detected (NOT DETECT); Cyclospora Cayetanensis Not Detected (NOT DETECT); E. Coli O157 Not Detected (NOT DETECT); Entamoeba Histolytica Not Detected (NOT DETECT); Enteroaggregative E. coli-EAEC Not Detected (NOT DETECT); Enteropathogenic E. coli-EPEC Not Detected (NOT DETECT); Enterotoxigenic E. coli-ETEC Not Detected (NOT DETECT); Giardia Lamblia Not Detected (NOT DETECT); Norovirus GI/GII Not Detected (NOT DETECT); Plesiomonas Shigelloides Not Detected (NOT DETECT); Rotavirus A Not Detected (NOT DETECT); Salmonella Sp Not Detected (NOT DETECT); Sapovirus Not Detected (NOT DETECT); Shiga Toxin-prod E. coli-STEC Not Detected (NOT DETECT); Shigella/Enteroin E. coli-EIEC Not Detected (NOT DETECT); Vibrio Cholerae Not Detected (NOT DETECT); Vibrio Sp Not Detected (NOT DETECT); Yersinia Enterocolitica Not Detected (NOT DETECT)
[2021-08-25 03:41] LABS: Hematocrit 21.2 % (33.0-51.0); Hemoglobin 7.1 g/dL (11.5-16.0); Mean Corpuscular HGB 30.5 pg (26.0-34.0); Mean Corpuscular HGB Conc 33.5 g/dL (31.5-36.5); Mean Corpuscular Volume 91 fL (80-100); Mean Platelet Volume 9.9 fL (9.1-12.4); NRBC ABSOLUTE 0.02 K/mm3 (0.00-0.02); NRBC Auto 0.1 /100 WBC (0.0-0.2); Platelet Count 233 K/mm3 (150-400); RDW Coefficient Variation 15.6 % (11.7-14.2); RDW Standard Deviation 49.6 fL (35.1-46.3); Red Blood Cell Count 2.33 M/mm3 (3.80-5.20); White Blood Cell Count 19.58 K/mm3 (4.00-11.30)
[2021-08-25 03:59] LABS: BAND PERCENT MAN 12 % (0-8); BASOPHILS PERCENT MAN 0 % (0-2); EOSINOPHILS PERCENT MAN 0 % (0-6); LYMPHOCYTES ABSOLUTE MAN 1.17 K/mm3 (0.84-5.20); LYMPHOCYTES PERCENT MAN 6 % (21-46); MONOCYTES ABSOLUTE MAN 0.78 K/mm3 (0.16-1.47); MONOCYTES PERCENT MAN 4 % (4-13); NEUTROPHILS ABSOLUTE MAN 17.62 K/mm3 (1.96-9.15); SEG NEUTROPHILS PERCENT MAN 78 % (41-73); TOTAL CELLS COUNTED 100
[2021-08-25 04:00] LABS: Albumin, Blood 1.3 g/dL (3.4-5.0); Anion Gap 8 mmol/L (6-16); Blood Urea Nitrogen 36 mg/dL (8-24); Bun/Creatinine Ratio 45.5 (12.0-20.0); CO2, Blood 22 mmol/L (21-32); Calcium, Blood 6.3 mg/dL (8.5-10.1); Chloride, Blood 107 mmol/L (98-108); Creatinine, Blood 0.79 mg/dL (0.40-1.00); Glomerular Filtration Rate >60 (60-); Glucose, Blood 134 mg/dL (70-99); Sodium, Blood 137 mmol/L (136-145); Vancomycin, Random 13.4 ug/mL
[2021-08-25 04:03] LABS: Potassium, Blood 3.5 mmol/L (3.5-5.5)
[2021-08-25 13:05] LABS: Hematocrit 24.5 % (33.0-51.0); Hemoglobin 8.4 g/dL (11.5-16.0)
[2021-08-26 03:45] LABS: Hematocrit 18.9 % (33.0-51.0); Hemoglobin 6.4 g/dL (11.5-16.0); Mean Corpuscular HGB 30.3 pg (26.0-34.0); Mean Corpuscular HGB Conc 33.9 g/dL (31.5-36.5); Mean Corpuscular Volume 90 fL (80-100); Mean Platelet Volume 9.9 fL (9.1-12.4); NRBC ABSOLUTE 0.03 K/mm3 (0.00-0.02); NRBC Auto 0.2 /100 WBC (0.0-0.2); Platelet Count 277 K/mm3 (150-400); RDW Coefficient Variation 14.8 % (11.7-14.2); RDW Standard Deviation 46.7 fL (35.1-46.3); Red Blood Cell Count 2.11 M/mm3 (3.80-5.20); White Blood Cell Count 14.91 K/mm3 (4.00-11.30)
[2021-08-26 04:12] LABS: BAND PERCENT MAN 30 % (0-8); BASOPHILS PERCENT MAN 0 % (0-2); EOSINOPHILS PERCENT MAN 0 % (0-6); LYMPHOCYTES ABSOLUTE MAN 0.29 K/mm3 (0.84-5.20); LYMPHOCYTES PERCENT MAN 2 % (21-46); TOTAL CELLS COUNTED 100
[2021-08-26 04:13] LABS: MONOCYTES ABSOLUTE MAN 0.44 K/mm3 (0.16-1.47); MONOCYTES PERCENT MAN 3 % (4-13); NEUTROPHILS ABSOLUTE MAN 14.16 K/mm3 (1.96-9.15); SEG NEUTROPHILS PERCENT MAN 65 % (41-73)
[2021-08-26 04:26] LABS: Albumin, Blood 1.3 g/dL (3.4-5.0); Anion Gap 10 mmol/L (6-16); Blood Urea Nitrogen 18 mg/dL (8-24); Bun/Creatinine Ratio 31.3 (12.0-20.0); CO2, Blood 25 mmol/L (21-32); Calcium, Blood 6.9 mg/dL (8.5-10.1); Chloride, Blood 104 mmol/L (98-108); Creatinine, Blood 0.58 mg/dL (0.40-1.00); Glomerular Filtration Rate >60 (60-); Glucose, Blood 131 mg/dL (70-99); Phosphorus, Blood 2.9 mg/dL (2.5-4.9); Sodium, Blood 139 mmol/L (136-145); Vancomycin, Random 11.8 ug/mL
[2021-08-26 19:29] LABS: Magnesium, Blood 1.7 mg/dL (1.6-2.4); Potassium, Blood 2.5 mmol/L (3.5-5.5)
[2021-08-27 03:37] LABS: Hematocrit 24.5 % (33.0-51.0); Hemoglobin 8.6 g/dL (11.5-16.0); Mean Corpuscular HGB 30.6 pg (26.0-34.0); Mean Corpuscular HGB Conc 35.1 g/dL (31.5-36.5); Mean Corpuscular Volume 87 fL (80-100); Mean Platelet Volume 10.1 fL (9.1-12.4); NRBC ABSOLUTE 0.07 K/mm3 (0.00-0.02); NRBC Auto 0.5 /100 WBC (0.0-0.2); Platelet Count 267 K/mm3 (150-400); RDW Coefficient Variation 14.5 % (11.7-14.2); RDW Standard Deviation 44.8 fL (35.1-46.3); Red Blood Cell Count 2.81 M/mm3 (3.80-5.20); White Blood Cell Count 13.05 K/mm3 (4.00-11.30)
[2021-08-27 03:58] LABS: Albumin, Blood 1.4 g/dL (3.4-5.0); Anion Gap 8 mmol/L (6-16); Blood Urea Nitrogen 14 mg/dL (8-24); Bun/Creatinine Ratio 27.3 (12.0-20.0); CO2, Blood 24 mmol/L (21-32); Calcium, Blood 6.5 mg/dL (8.5-10.1); Chloride, Blood 104 mmol/L (98-108); Creatinine, Blood 0.51 mg/dL (0.40-1.00); Glomerular Filtration Rate >60 (60-); Glucose, Blood 143 mg/dL (70-99); Phosphorus, Blood 1.5 mg/dL (2.5-4.9); Potassium, Blood 2.8 mmol/L (3.5-5.5); Sodium, Blood 136 mmol/L (136-145)
[2021-08-27 04:26] LABS: Magnesium, Blood 1.6 mg/dL (1.6-2.4)
[2021-08-27 04:43] LABS: BAND PERCENT MAN 15 % (0-8); BASOPHILS PERCENT MAN 0 % (0-2); EOSINOPHILS PERCENT MAN 0 % (0-6); LYMPHOCYTES ABSOLUTE MAN 0.52 K/mm3 (0.84-5.20); LYMPHOCYTES PERCENT MAN 4 % (21-46); MONOCYTES ABSOLUTE MAN 0.52 K/mm3 (0.16-1.47); MONOCYTES PERCENT MAN 4 % (4-13); SEG NEUTROPHILS PERCENT MAN 77 % (41-73); TOTAL CELLS COUNTED 100
[2021-08-27 19:50] LABS: Vancomycin, Trough 14.1 ug/mL (5.0-10.0)
[2021-08-28 03:52] LABS: BASOPHILS ABSOLUTE AUTO 0.02 K/mm3 (0.00-0.23); BASOPHILS PERCENT AUTO 0 % (0-2); EOSINOPHILS PERCENT AUTO 0 % (0-6); Hematocrit 25.7 % (33.0-51.0); Hemoglobin 8.7 g/dL (11.5-16.0); IMMATURE GRAN ABSOLUTE AUTO 0.31 K/mm3 (0.00-0.10); IMMATURE GRAN PERCENT AUTO 2 % (0-1); LYMPHOCYTES ABSOLUTE AUTO 0.78 K/mm3 (0.84-5.20); LYMPHOCYTES PERCENT AUTO 5 % (21-46); MONOCYTES ABSOLUTE AUTO 0.58 K/mm3 (0.16-1.47); MONOCYTES PERCENT AUTO 4 % (4-13); Mean Corpuscular HGB Conc 33.9 g/dL (31.5-36.5); Mean Corpuscular Volume 89 fL (80-100); Mean Platelet Volume 9.7 fL (9.1-12.4); NEUTROPHILS ABSOLUTE AUTO 13.81 K/mm3 (1.96-9.15); NEUTROPHILS PERCENT AUTO 89 % (41-73); NRBC ABSOLUTE 0.08 K/mm3 (0.00-0.02); NRBC Auto 0.5 /100 WBC (0.0-0.2); Platelet Count 335 K/mm3 (150-400); RDW Coefficient Variation 14.6 % (11.7-14.2); RDW Standard Deviation 44.6 fL (35.1-46.3)
[2021-08-28 04:10] LABS: Albumin, Blood 1.4 g/dL (3.4-5.0); Anion Gap 6 mmol/L (6-16); Blood Urea Nitrogen 16 mg/dL (8-24); CO2, Blood 25 mmol/L (21-32); Calcium, Blood 6.3 mg/dL (8.5-10.1); Chloride, Blood 106 mmol/L (98-108); Glomerular Filtration Rate >60 (60-); Glucose, Blood 95 mg/dL (70-99); Magnesium, Blood 1.7 mg/dL (1.6-2.4); Phosphorus, Blood 2.3 mg/dL (2.5-4.9); Potassium, Blood 3.8 mmol/L (3.5-5.5); Sodium, Blood 137 mmol/L (136-145)
[2021-08-29 04:56] LABS: BASOPHILS ABSOLUTE AUTO 0.07 K/mm3 (0.00-0.23); BASOPHILS PERCENT AUTO 0 % (0-2); EOSINOPHILS PERCENT AUTO 0 % (0-6); Hematocrit 29.5 % (33.0-51.0); Hemoglobin 9.6 g/dL (11.5-16.0); IMMATURE GRAN ABSOLUTE AUTO 0.79 K/mm3 (0.00-0.10); IMMATURE GRAN PERCENT AUTO 4 % (0-1); LYMPHOCYTES ABSOLUTE AUTO 1.06 K/mm3 (0.84-5.20); LYMPHOCYTES PERCENT AUTO 6 % (21-46); MONOCYTES ABSOLUTE AUTO 0.84 K/mm3 (0.16-1.47); MONOCYTES PERCENT AUTO 5 % (4-13); Mean Corpuscular HGB 29.6 pg (26.0-34.0); Mean Corpuscular HGB Conc 32.5 g/dL (31.5-36.5); Mean Corpuscular Volume 91 fL (80-100); Mean Platelet Volume 9.7 fL (9.1-12.4); NEUTROPHILS ABSOLUTE AUTO 15.07 K/mm3 (1.96-9.15); NEUTROPHILS PERCENT AUTO 85 % (41-73); NRBC ABSOLUTE 0.04 K/mm3 (0.00-0.02); NRBC Auto 0.2 /100 WBC (0.0-0.2); Platelet Count 413 K/mm3 (150-400); RDW Coefficient Variation 15.3 % (11.7-14.2); RDW Standard Deviation 48.6 fL (35.1-46.3); Red Blood Cell Count 3.24 M/mm3 (3.80-5.20); White Blood Cell Count 17.83 K/mm3 (4.00-11.30)
[2021-08-29 05:16] LABS: Albumin, Blood 1.6 g/dL (3.4-5.0); Anion Gap 9 mmol/L (6-16); Blood Urea Nitrogen 14 mg/dL (8-24); Bun/Creatinine Ratio 29.6 (12.0-20.0); CO2, Blood 22 mmol/L (21-32); Calcium, Blood 6.2 mg/dL (8.5-10.1); Chloride, Blood 106 mmol/L (98-108); Creatinine, Blood 0.47 mg/dL (0.40-1.00); Glomerular Filtration Rate >60 (60-); Glucose, Blood 126 mg/dL (70-99); Magnesium, Blood 2.2 mg/dL (1.6-2.4); Phosphorus, Blood 2.5 mg/dL (2.5-4.9); Sodium, Blood 137 mmol/L (136-145)
[2021-08-30 04:25] LABS: BASOPHILS ABSOLUTE AUTO 0.05 K/mm3 (0.00-0.23); BASOPHILS PERCENT AUTO 0 % (0-2); EOSINOPHILS PERCENT AUTO 0 % (0-6); Hematocrit 27.5 % (33.0-51.0); IMMATURE GRAN ABSOLUTE AUTO 1.13 K/mm3 (0.00-0.10); IMMATURE GRAN PERCENT AUTO 7 % (0-1); LYMPHOCYTES ABSOLUTE AUTO 0.95 K/mm3 (0.84-5.20); LYMPHOCYTES PERCENT AUTO 6 % (21-46); MONOCYTES ABSOLUTE AUTO 0.78 K/mm3 (0.16-1.47); MONOCYTES PERCENT AUTO 5 % (4-13); Mean Corpuscular HGB Conc 32.7 g/dL (31.5-36.5); Mean Corpuscular Volume 92 fL (80-100); Mean Platelet Volume 9.4 fL (9.1-12.4); NEUTROPHILS ABSOLUTE AUTO 13.55 K/mm3 (1.96-9.15); NEUTROPHILS PERCENT AUTO 82 % (41-73); NRBC ABSOLUTE 0.04 K/mm3 (0.00-0.02); NRBC Auto 0.2 /100 WBC (0.0-0.2); Platelet Count 405 K/mm3 (150-400); RDW Coefficient Variation 15.3 % (11.7-14.2); RDW Standard Deviation 48.5 fL (35.1-46.3); White Blood Cell Count 16.46 K/mm3 (4.00-11.30)
[2021-08-30 04:49] LABS: Magnesium, Blood 1.9 mg/dL (1.6-2.4)
[2021-08-30 05:04] LABS: Albumin, Blood 1.6 g/dL (3.4-5.0); Anion Gap 8 mmol/L (6-16); Blood Urea Nitrogen 14 mg/dL (8-24); Bun/Creatinine Ratio 35.4 (12.0-20.0); CO2, Blood 25 mmol/L (21-32); Calcium, Blood 5.7 mg/dL (8.5-10.1); Chloride, Blood 105 mmol/L (98-108); Glomerular Filtration Rate >60 (60-); Glucose, Blood 117 mg/dL (70-99); Potassium, Blood 3.4 mmol/L (3.5-5.5); Sodium, Blood 138 mmol/L (136-145)
[2021-08-31 05:14] LABS: BASOPHILS ABSOLUTE AUTO 0.03 K/mm3 (0.00-0.23); BASOPHILS PERCENT AUTO 0 % (0-2); EOSINOPHILS PERCENT AUTO 0 % (0-6); Hematocrit 26.4 % (33.0-51.0); Hemoglobin 8.6 g/dL (11.5-16.0); IMMATURE GRAN PERCENT AUTO 4 % (0-1); LYMPHOCYTES ABSOLUTE AUTO 0.73 K/mm3 (0.84-5.20); LYMPHOCYTES PERCENT AUTO 5 % (21-46); MONOCYTES ABSOLUTE AUTO 0.54 K/mm3 (0.16-1.47); MONOCYTES PERCENT AUTO 4 % (4-13); Mean Corpuscular HGB 30.3 pg (26.0-34.0); Mean Corpuscular HGB Conc 32.6 g/dL (31.5-36.5); Mean Corpuscular Volume 93 fL (80-100); Mean Platelet Volume 9.1 fL (9.1-12.4); NEUTROPHILS ABSOLUTE AUTO 11.72 K/mm3 (1.96-9.15); NEUTROPHILS PERCENT AUTO 87 % (41-73); Platelet Count 403 K/mm3 (150-400); RDW Coefficient Variation 15.8 % (11.7-14.2); Red Blood Cell Count 2.84 M/mm3 (3.80-5.20); White Blood Cell Count 13.52 K/mm3 (4.00-11.30)
[2021-08-31 05:53] LABS: Albumin, Blood 1.7 g/dL (3.4-5.0); Anion Gap 8 mmol/L (6-16); Blood Urea Nitrogen 17 mg/dL (8-24); Bun/Creatinine Ratio 43.7 (12.0-20.0); CO2, Blood 25 mmol/L (21-32); Calcium, Blood 6.2 mg/dL (8.5-10.1); Chloride, Blood 105 mmol/L (98-108); Creatinine, Blood 0.39 mg/dL (0.40-1.00); Glomerular Filtration Rate >60 (60-); Glucose, Blood 115 mg/dL (70-99); Magnesium, Blood 1.9 mg/dL (1.6-2.4); Phosphorus, Blood 2.9 mg/dL (2.5-4.9); Potassium, Blood 3.3 mmol/L (3.5-5.5); Sodium, Blood 138 mmol/L (136-145)
[2021-08-31] MEDS ORDERED: DIPATR PO (13:45)
[2021-08-31] MEDS ORDERED: LINE600 PO (13:46)
[2021-08-31] MEDS ORDERED: NICO21TP TOP (13:47)
[2021-08-31] MEDS ORDERED: K-Phos Origina500 MG PO (13:48)
[2021-08-31] MEDS ORDERED: VISBIOME 112.51 EACH PO (13:49)
[2021-08-31] MEDS ORDERED: POTA20LUD PT (13:49)
== END 2021-08-31 15:43 | disposition home health service (06) | DRG 871 ==
LOC: ER 12:38 → ICUE 16:46 → MEDS 16:46 → ICUE 16:47 → MEDS 17:04 → ICUE 17:04 → ER 17:04 → PCU 17:04 → ICUE 17:04 → MEDS 18:31 → PCU 20:40 → ICUE 08-24 15:22 → PCU 08-24 15:22 → ICUE 08-24 17:07 → MEDS 08-28 16:17 → PCU 08-28 16:17 → ER 08-28 16:17 → ICUE 08-28 16:17 → MEDS 08-28 16:17 → ICUE 08-28 16:18 → PCU 08-28 16:18 → ICUE 08-28 16:18 → MEDS 08-30 06:00
PROVIDERS: Family Medicine; Internal Medicine; Internal Medicine Critical Care Medicine; Pharmacist; Physician Assistant; Student in an Organized Health Care Education/Training Program; ADMIT Internal Medicine
PROC: 3E03329 Introduction of Other Anti-infective into Peripheral Vein, Percutaneous Approach (ICD-10-PCS; 2021-08-13)
PROC: 5A0945A Assistance with Respiratory Ventilation, 24-96 Consecutive Hours, High Flow/Velocity Cannula (ICD-10-PCS; 2021-08-15)
PROC: 30233N1 Transfusion of Nonautologous Red Blood Cells into Peripheral Vein, Percutaneous Approach (ICD-10-PCS; principal; 2021-08-23)
PROC: 8E0ZXY6 Isolation (ICD-10-PCS; 2021-08-23)
PROC: 3E033XZ Introduction of Vasopressor into Peripheral Vein, Percutaneous Approach (ICD-10-PCS; 2021-08-24)
DX: A41.02 Sepsis due to Methicillin resistant Staphylococcus aureus (principal); U07.1 COVID-19; J96.01 Acute respiratory failure with hypoxia; E43 Unspecified severe protein-calorie malnutrition; J18.9 Pneumonia, unspecified organism; R57.1 Hypovolemic shock; E87.2 Acidosis; R64 Cachexia; N17.9 Acute kidney failure, unspecified; E87.1 Hypo-osmolality and hyponatremia; J44.0 Chronic obstructive pulmonary disease with (acute) lower respiratory infection; F31.10 Bipolar disorder, current episode manic without psychotic features, unspecified; K50.90 Crohn's disease, unspecified, without complications; Z68.1 Body mass index [BMI] 19.9 or less, adult; N39.0 Urinary tract infection, site not specified; E86.0 Dehydration; Z66 Do not resuscitate; E83.42 Hypomagnesemia; Z51.5 Encounter for palliative care; B96.20 Unspecified Escherichia coli [E. coli] as the cause of diseases classified elsewhere; R65.20 Severe sepsis without septic shock; E87.5 Hyperkalemia; F17.210 Nicotine dependence, cigarettes, uncomplicated; B95.2 Enterococcus as the cause of diseases classified elsewhere; M81.0 Age-related osteoporosis without current pathological fracture; R74.01 Elevation of levels of liver transaminase levels; G89.29 Other chronic pain; G25.0 Essential tremor; M54.9 Dorsalgia, unspecified; E87.8 Other disorders of electrolyte and fluid balance, not elsewhere classified; Z71.6 Tobacco abuse counseling; G25.81 Restless legs syndrome; F43.10 Post-traumatic stress disorder, unspecified; K21.9 Gastro-esophageal reflux disease without esophagitis; E78.5 Hyperlipidemia, unspecified; Z93.2 Ileostomy status; Z90.49 Acquired absence of other specified parts of digestive tract; Z90.710 Acquired absence of both cervix and uterus; Z88.8 Allergy status to other drugs, medicaments and biological substances; Z79.51 Long term (current) use of inhaled steroids; Z79.891 Long term (current) use of opiate analgesic; Z79.899 Other long term (current) drug therapy
CPT/HCPCS: 0241U; 36415; 36430; 36600; 51702; 71045; 74176; 74250; 80048; 80053; 80069; 80202; 81001; 82010; 82248; 82330; 82565; 82803; 82947; 83010; 83605; 83735; 84100; 84132; 84145; 84484; 85014; 85018; 85025; 85060; 85379; 85610; 85730; 86850; 86900; 86901; 86923; 87040; 87077; 87086; 87186; 87507; 93005; 93010; 94640; 94660; 94664; 94760; 94762; 96365; 96367; 97110; 97116; 97161; 97165; 97530; 97535; 99285-25; A9270; C1751; J0610; J0692; J1650; J1720; J1815; J1940; J2060; J2543; J2760; J2920; J3010; J3370; J3475; J3480; J7030; J7040; J7042; J7050; J7060; J7120; J7512; P9016

== ENCOUNTER 2021-09-01 16:08 | Inpatient (IN) | payer OTHER ==
[~2021-09-01] VITALS: Ht 162.6 cm; Wt 43.3 kg
[~2021-09-01 16:08] MED LIST changes: +DIPATR PO; +HYDROCODONE-AC1 EA17 PO; +K-Phos Origina500 MG PO; +LINE600 PO; +Mirtazapine45 M1 PO; +NICO21TP TOP; +POTA20LUD PT; +PRAMIPEXOLE D0.25 M1 PO; +VISBIOME 112.51 EACH PO
[2021-09-01 17:02] LABS: Alanine Aminotransfer (ALT/SGP 39 U/L (12-78); Albumin, Blood 2.3 g/dL (3.4-5.0); Albumin/Globulin Ratio 0.6 (0.8-1.8); Alk Phos 82 U/L (50-136); Anion Gap 6 mmol/L (6-16); Aspartate Aminotrans (AST/SGOT 23 U/L (12-37); Bilirubin, Total 0.4 mg/dL (0.1-1.0); Blood Urea Nitrogen 17 mg/dL (8-24); Bun/Creatinine Ratio 37.9 (12.0-20.0); CO2, Blood 25 mmol/L (21-32); Calcium, Blood 7.3 mg/dL (8.5-10.1); Chloride, Blood 106 mmol/L (98-108); Creatinine, Blood 0.45 mg/dL (0.40-1.00); Globulin, Blood 3.8 g/dL (2.2-4.0); Glomerular Filtration Rate >60 (60-); Glucose, Blood 67 mg/dL (70-99); Magnesium, Blood 2.1 mg/dL (1.6-2.4); Sodium, Blood 137 mmol/L (136-145); Total Protein, Blood 6.1 g/dL (6.4-8.2)
[2021-09-01 17:08] LABS: Potassium, Blood 5.6 mmol/L (3.5-5.5)
[2021-09-01 17:23] LABS: BASOPHILS ABSOLUTE AUTO 0.05 K/mm3 (0.00-0.23); BASOPHILS PERCENT AUTO 0 % (0-2); EOSINOPHILS ABSOLUTE AUTO 0.14 K/mm3 (0.00-0.68); EOSINOPHILS PERCENT AUTO 1 % (0-6); Hematocrit 31.5 % (33.0-51.0); Hemoglobin 10.4 g/dL (11.5-16.0); IMMATURE GRAN ABSOLUTE AUTO 0.39 K/mm3 (0.00-0.10); IMMATURE GRAN PERCENT AUTO 1 % (0-1); LYMPHOCYTES ABSOLUTE AUTO 1.37 K/mm3 (0.84-5.20); LYMPHOCYTES PERCENT AUTO 5 % (21-46); MONOCYTES ABSOLUTE AUTO 0.46 K/mm3 (0.16-1.47); MONOCYTES PERCENT AUTO 2 % (4-13); Mean Corpuscular HGB 30.2 pg (26.0-34.0); Mean Corpuscular Volume 92 fL (80-100); NEUTROPHILS ABSOLUTE AUTO 27.25 K/mm3 (1.96-9.15); NEUTROPHILS PERCENT AUTO 92 % (41-73); NRBC ABSOLUTE 0.02 K/mm3 (0.00-0.02); NRBC Auto 0.1 /100 WBC (0.0-0.2); Platelet Count 542 K/mm3 (150-400); RDW Coefficient Variation 16.4 % (11.7-14.2); RDW Standard Deviation 53.1 fL (35.1-46.3); Red Blood Cell Count 3.44 M/mm3 (3.80-5.20); White Blood Cell Count 29.66 K/mm3 (4.00-11.30)
[2021-09-01 19:10] LABS: Base Excess Venous 2.7 mmol/L; Bicarbonate Venous 27.3 mmol/L (24.0-30.0); PCO2 Venous 27.5 mmHg (38-42); PO2 Venous 130 mmHg (38-42); pH Blood Venous 7.56 (7.34-7.37)
[2021-09-01 19:41] LABS: Source, Urine Foley catheter
[2021-09-01 20:05] LABS: Bilirubin, Urine Neg (Neg); Blood, Urine 1+ (Neg); Glucose Qualitative, Urine Neg (Neg); Ketones, Urine Neg (Neg); Leukocyte Esterase, Urine Neg (Neg); Nitrite, Urine Neg (Neg); Protein, Urine Neg (Neg); Specific Gravity, Urine 1.005 (1.003-1.022); Urobilinogen, Urine NORM (Normal)
[2021-09-01 20:18] LABS: Appearance, Urine Clear (Clear); Color, Urine Pale Yellow (P-Yellow)
[2021-09-01 20:19] LABS: Bacteria Not Seen /hpf; Squamous Epithelial Cells Not Seen /hpf (Few); White Blood Cells, Urine Not Seen /hpf (0-5)
--- NOTE | 2021-09-02 00:01 | NUR ---
PT ARRIVED TO PCU AT 2230. THIS STUDENT NURSE AND PAUL HARDY ASSUMED CARE OF PT. PT WAS MILDLY ANXIOUS AND IRRITATED ON ARRIVAL. ORIENTED PT TO ROOM AND MADE PT COMFORTABLE. CALL LIGHT WITHIN REACH, SIDE RAILS UP, AND BED IN LOWEST POSITION. RECIEVED REPORT FROM PAUL ARAGON
[2021-09-02 00:14] LABS: Campylobacter Sp Not Detected (NOT DETECT)
[2021-09-02 00:15] LABS: Adenovirus F 40/41 Not Detected (NOT DETECT); Astrovirus Not Detected (NOT DETECT); Cryptosporidium Not Detected (NOT DETECT); Cyclospora Cayetanensis Not Detected (NOT DETECT); E. Coli O157 Not Detected (NOT DETECT); Entamoeba Histolytica Not Detected (NOT DETECT); Enteroaggregative E. coli-EAEC Not Detected (NOT DETECT); Enteropathogenic E. coli-EPEC Not Detected (NOT DETECT); Enterotoxigenic E. coli-ETEC Not Detected (NOT DETECT); Giardia Lamblia Not Detected (NOT DETECT); Norovirus GI/GII Not Detected (NOT DETECT); Plesiomonas Shigelloides Not Detected (NOT DETECT); Rotavirus A Not Detected (NOT DETECT); Salmonella Sp Not Detected (NOT DETECT); Sapovirus Not Detected (NOT DETECT); Shiga Toxin-prod E. coli-STEC Not Detected (NOT DETECT); Shigella/Enteroin E. coli-EIEC Not Detected (NOT DETECT); Vibrio Cholerae Not Detected (NOT DETECT); Vibrio Sp Not Detected (NOT DETECT); Yersinia Enterocolitica Not Detected (NOT DETECT)
[2021-09-02 05:06] LABS: BASOPHILS ABSOLUTE AUTO 0.09 K/mm3 (0.00-0.23); BASOPHILS PERCENT AUTO 0 % (0-2); EOSINOPHILS ABSOLUTE AUTO 0.09 K/mm3 (0.00-0.68); EOSINOPHILS PERCENT AUTO 0 % (0-6); Hematocrit 29.2 % (33.0-51.0); Hemoglobin 9.5 g/dL (11.5-16.0); IMMATURE GRAN ABSOLUTE AUTO 0.32 K/mm3 (0.00-0.10); IMMATURE GRAN PERCENT AUTO 1 % (0-1); LYMPHOCYTES ABSOLUTE AUTO 0.83 K/mm3 (0.84-5.20); LYMPHOCYTES PERCENT AUTO 3 % (21-46); MONOCYTES ABSOLUTE AUTO 0.38 K/mm3 (0.16-1.47); MONOCYTES PERCENT AUTO 1 % (4-13); Mean Corpuscular HGB 30.3 pg (26.0-34.0); Mean Corpuscular HGB Conc 32.5 g/dL (31.5-36.5); Mean Corpuscular Volume 93 fL (80-100); NEUTROPHILS ABSOLUTE AUTO 29.64 K/mm3 (1.96-9.15); NEUTROPHILS PERCENT AUTO 95 % (41-73); NRBC ABSOLUTE 0.02 K/mm3 (0.00-0.02); NRBC Auto 0.1 /100 WBC (0.0-0.2); Platelet Count 470 K/mm3 (150-400); RDW Coefficient Variation 16.3 % (11.7-14.2); RDW Standard Deviation 54.1 fL (35.1-46.3); Red Blood Cell Count 3.14 M/mm3 (3.80-5.20); White Blood Cell Count 31.35 K/mm3 (4.00-11.30)
[2021-09-02 05:25] LABS: Alanine Aminotransfer (ALT/SGP 32 U/L (12-78); Albumin/Globulin Ratio 0.7 (0.8-1.8); Alk Phos 68 U/L (50-136); Anion Gap 7 mmol/L (6-16); Aspartate Aminotrans (AST/SGOT 22 U/L (12-37); Bilirubin, Total 0.5 mg/dL (0.1-1.0); Blood Urea Nitrogen 11 mg/dL (8-24); Bun/Creatinine Ratio 26.6 (12.0-20.0); CO2, Blood 25 mmol/L (21-32); Calcium, Blood 7.1 mg/dL (8.5-10.1); Chloride, Blood 105 mmol/L (98-108); Creatinine, Blood 0.41 mg/dL (0.40-1.00); Globulin, Blood 2.9 g/dL (2.2-4.0); Glomerular Filtration Rate >60 (60-); Glucose, Blood 80 mg/dL (70-99); Potassium, Blood 4.2 mmol/L (3.5-5.5); Sodium, Blood 137 mmol/L (136-145); Total Protein, Blood 4.9 g/dL (6.4-8.2)
[2021-09-02 05:29] LABS: TOTAL CELLS COUNTED 2
--- NOTE | 2021-09-02 06:22 | NUR ---
SHIFT SUMMARY PT TRANSFERRED FROM ED AT 2230. STUDENT NURSE AND RN ANTONY RECIEVED PT; GOT HER SETTLED AND ORIENTED HER TO THE ROOM. PT APPEARED ANXIOUS AND IRRITATED BUT SETTLED SHIFT WENT ON. PT A&0 X4 UPON ARRIVAL. SHIFT WENT ON, PT SEEMS MORE CONFUSED. SPEECH IS INCOHERENT AND RESPONSES ARE NOT ALWAYS APPROPRIATE. THIS SEEMED TO OCCUR MORE TOWARDS END OF SHIFT. VSS; SINUS TACH WITH HEART RATE IN 100'S - 115'S. SBP 115 - 120'S. O2 SAT >96% ON RA. ON ARRIVAL PT HAD IV IN LEFT HAND. 2ND IV WAS PLACED IN LOWER LEFT ARM. PT DENIES SOB, CHEST PAIN AND CHEST PRESSURE. PT COMPLAINS OF PAIN; HAS HX OF CHRONIC BACK PAIN. DURING ASSESSMENT; SKIN IS VERY FRAGILE AND ECCHYMOTIC. BRUISES, SKIN TEARS, AND ECCHYMOSIS SCATTERED THROUGHOUT UPPER EXTREMITIES. REDDENED, PEELING AREA NOTED ON SACRUM/COCCYX AREA. MEPILEX AND BARRIER CREAM APPLIED. SEE CHART FOR PHOTOS. PT ON APPLICATIONS DEVELOPMENT ANALYST PUMP PER EMAR; 40 MCG OF FENTANYL PER APPLICATIONS DEVELOPMENT ANALYST PUMMP DURING SHIFT. PT STATES PAIN HAS IMPROVED. PT HAS ILEOSTOMY; BAG EMPTIED TWICE DURING SHIFT. OSTOMY LEAKED; PT CLEANED UP, BAG REPLACED, AND COMPLETE BED CHANGE COMPLETED. PT REPOSITIONED THROUGHOUT SHIFT. BED IN LOWEST POSITION, SIDE RAILS UP, AND CALL LIGHT WITHIN REACH.
--- NOTE | 2021-09-02 08:48 | NUR ---
Spiritual Care Consult: ordered by Dr. Antonio Ortez Pt. is in bed and welcomes my visit. Pt. recognizes (verbally) this livestock haulier as "the preacher." Provide a calming presence and through teraputic listening pt. verbalized wanting second medical opinion. Pt. displays evidence of tremors, yet verbalizes that she is not cold, but rather hot. This livestock haulier has seen this pt. in the last two weeks. Pt. displays evidence of trust. Prayed for Pt. and assured her that I would check on her later today. Pt. verbalized gratitude for the spiritual care visit.
--- NOTE | 2021-09-02 18:21 | NUR ---
Spiritual Care follow up Pt. is in bed and welcomes my visit. Pt.verbalizes that she has chosen to "go home on hospice" and that her brother would be coming to to pick her up. Listened empathetically. Discussed personal bud and belief and followed up on earlier conversations. Pt. displays evidence of being at peace with her decsion. Coats with Pt. Pt.verbalized how important it was to have spiritual support over the past two weeks. Pt. also verbalized gratitude forthe care she has received.
--- NOTE | 2021-09-02 18:24 | NUR ---
SHIFT SUMMARY PT A/O X4 AND COOPERATIVE OF CARE. PT VSS THROUGHOTU SHIFT WITH O2 SATS > 96% ON RA. NO REPORT OF CHEST PAIN/PRESSURE THROUGHOUT SHIFT. NO REPORT OF SOB THROUGHOUT SHIFT, THOUGH PT VISIBLY TACHYPNEIC. PT HAS BILAT EDEMA OF FEET THAT PT REPORTED "CAME ON VERY QUICK," DR AWARE. PT HAD TREMORS THROUGHOUT SHIFT AND REPORTED "FEELS LIKE I AM IN A DREAM." BROTHER HAS BEEN AT BEDSIDE AND HAS ASKED FOR DICHARGE AND PATIENT ADVOCATE, NURSING SUPERVISR AND MORPHOLOGY TEACHER HAD DISCUSSIONS WITH BROTHER. BROTHER AGREED FOR SISTER TO DISCHARGE TOMORROW ON HOSPICE AFTER PT AGREED TO HOSPICE. NOTIFIED OF PT REQUEST, ORDERS FOR REFFERAL IN PLACE. CASTANO AND ASSOCIATE PROGRAMMER ANALYST PUMP REMOVED PER ORDER, HOME PAIN MED REGIMINE ORDERED, SEE EMAR. STRICT I&O'S ORDERED WITH DAILY WEIGHTS. PT SEEN BY SPEECH THERAPY FOR EVAL, PUREE DIET WITH PO MEDS IN APPLESAUCE.
--- NOTE | 2021-09-03 01:54 | NUR ---
PT HAS BEEN TREMULOUS DURING SHIFT, FIDGETING. REPOSITIONED, COMFORTABLE FOR ABOUT HALF HOUR THEN FIDGETING AGAIN. UNABLE TO TELL ME WHAT SHE NEEDS STATING "I DON'T KNOW" WHEN ASKED WHAT SHE NEEDS. PT TOOK EVENING MEDICATIONS WHOLE IN APPLESAUCE, SWALLOWS WELL. MEDICATED FOR PAIN IN BACK, SEE MAR. PT APPEARS TO RELAX AFTER RECEIVING MEDICAITONS, RESTING IN BED WITH EYES CLOSED, FIDGETING ONLY WHEN DISTURBED, SETTLES QUICKLY. HR DECREASED FROM 120'S IN SINUS TACH TO 70'S SINUS RHYTHM NOW. CALL LIGHT IN REACH. SAFETY MEASURES IN PLACE.
--- NOTE | 2021-09-03 03:53 | NUR ---
PT BECOMING AGGITATED, CALLING OUT FOR HELP STATING "I'M FALLING, PUSH ME BACK TO THE MIDDLE". HR UP IN 150'S WHEN DISTRESSED. REASURE PT THAT SHE WAS NOT FALLING AND WAS SAFE. REPOSITIONED FOR COMFORT, BRIEF CHANGED. PT NOW RESTING, NO LONGER CALLING OUT AND PULLING AT COVERS. HR IN 80'S. SAFETY MEASURES IN PLACE.
--- NOTE | 2021-09-03 10:15 | NUR ---
PATIENT DISCHARGED HOME WITH [facility] AT APPROX 1010. [facility] CAME TO TRANSPORT HER HOME. DISCHARGE COMPLETED BY NIPPLE MAKER AND MAYRA SCALES RN. HER BROTHER VIKKI CAME TO FOLLOW HER HOME. HE WILL BE CARING FOR HER AT HOME. HE SAYS THAT MEI RN WILL BE COMING TO THE HOME TODAY TO REVIEW MEDICATIONS WITH HIM AND THE PATIENT. NOTIFIED VIKKI THAT PATIENT HAD NOT YET RECEIVED HER MORNING PEG TUBE FEEDING BUT SHE DID EAT BREAKFAST. HE SAYS THAT HE WILL GIVE HER THE FEEDING WHEN SHE GETS HOME. IV'S D/C'D. PATIENT MEDICATED FOR PAIN PRIOR TO DISCHARGE. NO FURTHER QUESTIONS AT TIME OF DISCHARGE.
--- NOTE | 2021-09-03 13:14 | NUR ---
MAYRA SCALES SQUIRREL MAN SAID THAT SHE SPOKE WITH DR. CRAWFORD REGARDING THIS PATIENT BEING DISCHARGE. HE TOLD HER THAT HE SAID HE WOULD HAVE LIKED TO HAVE BEEN NOTIFIED HE DID NOT COMPLETE THE MED REC. THE RIDE WAS SCHEDULED AFTER HE WENT HOME YESTERDAY AND HE WAS NOT NOTIFIED. HE TOLD MAYRA THAT THE PATIENT IS GOING TO SEE HER PCP IN A FEW DAYS AND THAT THE MEDICATIONS WILL BE UPDATED AT THAT TIME.
== END 2021-09-03 10:15 | disposition hospice, home (50) | DRG 871 ==
LOC: ER 16:08 → PCU 21:34
PROVIDERS: Emergency Medicine; Family Medicine; ADMIT Internal Medicine
DX: A41.9 Sepsis, unspecified organism (principal); J18.9 Pneumonia, unspecified organism; E43 Unspecified severe protein-calorie malnutrition; F31.62 Bipolar disorder, current episode mixed, moderate; N39.0 Urinary tract infection, site not specified; J44.0 Chronic obstructive pulmonary disease with (acute) lower respiratory infection; R64 Cachexia; Z16.22 Resistance to vancomycin related antibiotics; Z16.24 Resistance to multiple antibiotics; Z68.1 Body mass index [BMI] 19.9 or less, adult; Z51.5 Encounter for palliative care; D72.829 Elevated white blood cell count, unspecified; E83.51 Hypocalcemia; B95.2 Enterococcus as the cause of diseases classified elsewhere; E88.09 Other disorders of plasma-protein metabolism, not elsewhere classified; F17.210 Nicotine dependence, cigarettes, uncomplicated; D63.8 Anemia in other chronic diseases classified elsewhere; E03.9 Hypothyroidism, unspecified; G89.29 Other chronic pain; Z90.49 Acquired absence of other specified parts of digestive tract; Z90.710 Acquired absence of both cervix and uterus; Z93.2 Ileostomy status; Z86.16 Personal history of COVID-19; Z98.890 Other specified postprocedural states; Z88.8 Allergy status to other drugs, medicaments and biological substances; Z79.899 Other long term (current) drug therapy
CPT/HCPCS: 36415; 71045; 80053; 81001; 82330; 82803; 82947; 83605; 83735; 84145; 85025; 87040; 87507; 92610; 94640; 94664; 94762; 96365; 96367; 96375; 96376; 97110; 97162; 97530; 99285-25; A9270; C1751; J0610; J0692; J1650; J2020; J3010; J7030